=== PATIENT | male | born 1950 ===

== ENCOUNTER 2024-09-09 08:54 | Outpatient (AMB) | payer OTHER, SELFPAY ==
--- NOTE | 2024-09-09 09:00 | A.SPINEOV_ITS ---
Vital Signs 09/09/24 09:14 Height 5 ft 4 in Weight 150 lb BMI 25.7 Intake Visit Reasons: LBP Intake Note: Mr. Jiang is here today c/o numbness and weakness of legs hes also here for a second opinion. 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 He is a 74-year-old gentleman who has had a chronic issue with his low back on and off for years with left-sided back pain and sciatic pain, apparently has known about a spondylolisthesis in his lumbar spine and saw Dr. Richey at [facility]. He was told about surgery, sounds like lumbar fusion was discussed but 1 of the main symptoms the patient was hoping to go away is a numbness in his foot and he was told that that was unlikely to get better after surgery. He also experiences a sense of fatigue or discomfort like his toes are cramping as well on the bottom. For the most part it did not sound all that enticing, so the patient has elected to attempt conservative treatments with spinal decompression with a chiropractor. He just started that process and feels as though it is slightly improving his situation. He has not done any dedicated physical therapy, pain management injections etc.. He takes no medications but does take various herbal remedies. He came today to see if there is anything we could do for him surgically. He does report issues with bowel incontinence going back many decades, more recently has felt as though there maybe some altered sensation in the perineum or the saddle area as well as possibly in his penis. No problems with urination or erections. PMH: He denies any medical history, he did have a recent humerus fracture, he has never had surgery for it it was just put in a sling and he recovered from that without incident. Social hx: He uses smoke marijuana and drink alcohol fairly heavily, but quit that many years ago, he does not smoke cigarettes Medications: Takes no medication Allergies: Denies Physical exam: Awake alert oriented no acute distress he is able to stand on his own, walk down the hallway, steady gait in normal position, some unsteadiness with tandem gait walking. Motor examination reveals full strength of bilateral lower extremities, patellar reflexes intact, Achilles reflexes absent. Strength in his hands is excellent, his proximal right arm was unable to be adequate tested because of healing and some atrophy of his right arm from the humerus fracture but for the most part seems to be full strength, no Thompson's sign or signs of hyperreflexia in the upper extremities Imaging review: No imaging to review but he did show me a x-ray picture of what looks like a grade 2 spondylolisthesis of L4-5 and possibly L3-4 grade 1 Impression: 74-year-old male here to be evaluated for what sounds like left- sided low back pain and numbness of his left foot as well as some feelings of cramping in his left foot when he walks. He saw Dr. Richey at [facility] who was considering surgery on him but could not promise the patient that the numbness in his foot would go away after surgery so they both agreed it was best he did not pursue the surgery. He did not have his MRI with him today, but did show me an x-ray picture of what looks like a grade 1-2 spondylolisthesis at L4-5, and a grade 1 spondylolisthesis at L3-4. I told him I would be happy to review his MRI with Dr. Valenzuela. He also apparently had flexion-extension x-rays done at [facility] and he will drop that disc off. Once I have a chance to review everything I will get back to the gentleman. Thank you for allowing us to care for your patient. The total time spent with this visit with this patient was 45 minutes reviewing history, physical exam, discussing imaging review, and implementation of treatment plan or further diagnostic testing Ez Valenzuela MD,PhD [facility] Coding Level of Care Code New Pt Level 4 (46016) Diagnoses Spondylolisthesis, lumbar region M43.16
[2024-09-09 09:14] VITALS: BMI 25.7
--- OUTSIDE RECORDS SUMMARY | 2024-09-09 09:30 | XMS_ITS | Clinical Summary ---
Author Organization [facility] Address [address] [place] [address] Care Team Providers Care Warehouse Order Puller Name Role Phone Unavailable Primary Care Provider Unavailabl e Source Comments PLEASE NOTE, if this patient is a minor, it may be UNLAWFUL to discuss sensitive information that is contained in these records (such as FAMILY PLANNING, MENTAL HEALTH or SUBSTANCE ABUSE) with the minor patient's parent or other person without the patient's specific authorization.[facility] Medications No known medications Active Problems Problem Noted Date Diagnosed Date H/O dental abscess 03/10/2017 Eye pain, left 03/10/2017 Social History Tobacco Use Types Packs/Day Years Used Date Smoking Tobacco: Never Smokeless Tobacco: Never Tobacco Cessation:Counseling Given: Yes Social Connections Answer Date Recorded Social Connections and Isolation 0 01/30/2019 Financial Resource Strain Answer Date R ecorded Financial Resource Strain 0 2018 Stress Answer Date Recorded Stress 0 01/30/2019 Physical Activity Answer Date Recorded Physical Activity 0 01/30/2019 Food Insecurity Answer Date Recorded Food 0 01/30/2019 Transportation Needs Answer Date Record ed Transportation 0 01/30/2019 Housing Stability Answer Date Recorded Housing 0 01/30/2019 Safety and Environment Answer Date Doc rded Safety 0 01/30/2019 Utilities Answer Date Recorded Utilities 0 01/30/2019 Employment Answer Date Recorded Employment 0 01/30/2019 Sex and Gender Information Value Date Recorded Sex Assigned at Not on file Legal Sex Male 12:44 PM PDT Gender Identity Not on file Sexual Orientation Not on file Last Filed Vital Signs Vital Sign Reading Time Taken Comments Blood Pressure 127/80 03/10/2017 4:30 PM EDT Pulse 78 03/10/2017 4:30 PM EDT Temperature 37.1 ??C (98.7 ??F) 03/10/2017 4:30 PM ED T Respiratory Rate 20 03/10/2017 4:30 PM EDT Oxygen Saturation 98% 03/10/2017 4:30 PM EDT Inhaled Oxygen Concentration - - Weight 80.3 kg (177 lb) 03/10/2017 4:30 PM EDT Height - - Body Mass Index - - Plan of Treatment Not on file Insurance [facility] (MEDICAID)
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
== END 2024-09-09 09:46 | disposition home or self-care (01) ==
LOC: HO.HNS 08:55
PROVIDERS: PCP Family Medicine; Visit Provider Physician Assistant
DX: M43.16 Spondylolisthesis, lumbar region (principal)
CPT/HCPCS: 99204

== ENCOUNTER 2024-09-09 08:54 | Outpatient (REF) | payer OTHER, SELFPAY ==
--- OUTSIDE RECORDS SUMMARY | 2024-09-09 13:01 | XMS_ITS | Clinical Summary ---
Author Organization [facility] Address [address] [place] [address] Care Team Providers Care Top Collar Baster Name Role Phone Unavailable Primary Care Provider [...] Plan of Treatment Not on file Insurance [facility] (MEDICAID)
== END 2024-09-09 08:55 | disposition home or self-care (01) ==
LOC: CF 08:54
PROVIDERS: PCP Family Medicine; Visit Provider Physician Assistant
DX: M43.16 Spondylolisthesis, lumbar region (principal)
CPT/HCPCS: 99202

== ENCOUNTER 2024-09-23 13:28 | Outpatient (REF) | payer OTHER, SELFPAY ==
--- NOTE | ~2024-09-23 | XR_ITS ---
EXAMINATION: X-ray lumbar spine 4 views. CLINICAL INFORMATION: Spondylolisthesis, lumbar region. TECHNIQUE: AP and lateral views and lateral views during flexion and extension position. COMPARISON: None FINDINGS: Multilevel marginal osteophyte formation and endplate sclerosis decreased intervertebral disc height from the lower thoracic to the lumbar spine. S-shaped curvature of the lumbar spine with a levoconvex morphology. Grade 1 anterolisthesis L4-5 and L5-S1 which persists during flexion and extension position. Vascular calcifications, aorta. XR/XR lumbar spine 4V min IMPRESSION: Multilevel thoracolumbar spondylosis with grade 1 anterolisthesis L4-5 and L5-S1 and no gross instability. Atherosclerosis disease, aorta. Electronically signed by: Luis Pa MD 09/23/2024 02:46 PM EDT
--- OUTSIDE RECORDS SUMMARY | 2024-09-23 14:45 | XMS_ITS | Data Portability ---
Author Organization [facility], , [facility] Address [address] [place] [address] Care Team Providers Care Rn Hospice Name Role Phone KATHLEEN COHEN Primary Care [...] naproxen 500 mg tablet 2013 014 [email or web address] [facility] [address] ([facility]), [address] [place], [place], [id number], 4 12:04:55 Patient Targets Encounter Date Encounter Id Patient Goals Patient Target Last Modified By Organization Details Last Modified Time 02/10/2014 [id number] long term goal of L-spine AROM (normal) motion: flexion: active motion (___ deg.) Not available Not available Not available long term goal of L-spine AROM (normal) motion: extension: active motion (___ deg.) Not available Not available Not available prison goal of Average symptom intensity average 06/17 Not available Not available Not available prison goal of Standing performs without symptoms Not available Not available Not available prison goal of Walking long distances performs without symptoms Not available Not available Not available prison goal of Running performs without symptoms Not available Not available Not available Patient InstructionsNo instructions recorded. Reason for Referral None Reported. Problems Name Problem SNOMED Code Status Onset Date Resolution Date Notes Provider Name and Address Organization Details Recorded Time Low back pain 997274613 Active Kathleen Cohen MD [address] [place] [address], [phone] , [facility] 03/16/2014 12:04:55 Problem Notes None recorded. Procedures Surgical History Date Name Laterality Status Provider Name and Address Organization Details Recorded Time 4 48372: Therapeutic Exercise completed Rosalinda Espinoza, PT [address] [place], [address], [facility] 02/24/2014 14:45:21 4 87939: PT Evaluation completed Rosalinda Espinoza, PT [address] [place], [address], [facility] 02/13/2014 09:48:01 Imaging Results None recorded. Procedure [...] Updated DateTime 02/10/2014 164.465 cm 28.8 kg/m2 68790.88 764 g 132 mm[Hg] 76 mm[Hg] [facility] 4 11:48:38 Date Recorded Body weight Body mass index (BMI) Body height Systolic blood pressure Diastolic blood pressure Provider Name and Address Organization Details Last Updated DateTime 03/16/2014 41598.88 764 g 28.8 kg/m2 164.465 cm 132 mm[Hg] 78 mm[Hg] [facility] 4 11:33:04 Date Recorded Body weight Body mass index (BMI) Body height Systolic blood pressure Diastolic blood pressure Provider Name and Address Organization Details Last Updated DateTime 03/20/2014 87219.64 5675 g 29.8 kg/m2 164.465 cm 104 mm[Hg] 66 mm[Hg] Lanny Thomas LPN [facility] 4 15:13:42 Social History Question Answer Notes LastModified by Organizat ion Details LastModified Time Tobacco Smoking Status Former Smoker anne Lanny Thomas LPN [facility] 03/20/2014 15:13:42 What Is Your Level [...] unknown Medical History Condition Response NEUROLOGIC N EYE Y RENAL / GENITOURINARY N INFECTIOUS DISEASE N ENT N GASTROINTESTINAL Y METABOLIC N Asthma Y Chronic Back Pain Y SKIN Y CARDIOVASCULAR N MUSCULOSKELETAL Y ENDOCRINE N RHEUMATOLOGIC N PSYCHIATRIC Y CANCER N Past Encounters Encounter ID Performer Location Encounter Start Date Encounter Closed Date Diagnosis/Indication Diagnosis SNOMED-CT Code Diagnosis ICD10 Code Diagnosis Note [id number] Isi Graff , [facility], [address] [place] [address] 02/08/2014 12:14:24 02/08/2014 12:56:01 Toothache [id number] Follow up with dental. Will order labs today in case they are needed. Will also draw screening labs and patient will f/u for PHA. [id number] Kathleen Cohen MD , [facility], [address] [place] [address] 02/10/2014 11:25:38 02/10/2014 12:14:01 Synovial cyst of popliteal space 98916107 [id number] Rosalinda Espinoza , PT Physical Therapy, [facility] [address] [place] [address] 02/10/2014 12:22:12 02/14/2014 07:15:47 Low back pain 431179566 [id number] Rosalinda Espinoza , PT Physical Therapy, [facility] [address] [place] [address] 02/24/2014 14:37:23 02/27/2014 07:16:30 Low back pain 672263962 [id number] Kathleen Cohen MD , [facility], [address] [place] [address] 03/16/2014 11:11:38 03/16/2014 12:02:47 Adult health examination [id number] Patient declines: flu shot, Tdap, colonoscop y, accepts bloodwork but will return some other day for this. Continue healthy lifestyle. PMH/FH/charito gical hx and part of social history done today. Limited by time. Patient will f/u with me as well after joint injection for remainder of social history and general exam. Synovial c yst of popliteal space 54181815 Patient will schedule here for draining and steroid injection or at [facility]. Low back pain 887793753 T/b/d at f/u. [id number] Trever Salinas MD , [facility], [address] [place] [address] 03/20/2014 15:03:53 03/20/2014 15:32:22 Synovial cyst of popliteal space 88123029 I don't recommend aspiration as cyst will [...] Member ID Guarantor Name 02/10/2014 1 [facility]MEDICA[facility] [id number] Henrik F F Pepiciello [id number] 1 Henrik Pepiciello 02/10/2014 1 [facility] (MEDICAID O) [id number] Henrik F F Pepiciello [id number] 1 Henrik Pepiciello 02/24/2014 1 [facility] (MEDICAID HMO) [id number] Henrik F F Pepiciello [id number] 1 Henrik Pepiciello 03/16/2014 1 [facility] (MEDICAID HMO) [id number] Henrik F F Pepiciello [id number] 1 Henrik Pepiciello 03/20/2014 1 [facility] (MEDICAID HMO) [id number] Henrik F F Pepiciello [id number] 1 Henrik Jiang Notes Date Note Type [...] No other complaint today. Kathleen Cohen MD [address] [place] [address], [phone], [facility] 02/13/2014 09:29:50 03/16/2014 text/html Patient was last seen for Forrest's cyst. Referred to [facility] where he declined draining the cyst but now he wants it drained. Otherwise well. Patient has not come for a new patient visit with me but did have a new patient visit with Sobia Telles, wants to follow up with me. PMH/FH/SH not taken at other new patient visit but patient really wants to discuss these things. Kathleen Cohen MD [address] [place] [address], [phone], [facility] 03/16/2014 12:05:03 03/20/2014 text/html pt here for possible drainage of forrest's cyst on left knee . Has lump back of left knee- . doesn't really bother him. Told aspiration with cortisone may help. On x-ray there is slight djd. There is no posterio pain in knee . There is some infrapatella tenderon pain Trever Salinas MD [address] [place] [address], [phone], [facility] 03/20/2014 17:16:02
--- OUTSIDE RECORDS SUMMARY | 2024-09-23 14:45 | XMS_ITS | Clinical Summary ---
Author Organization [facility] Address [address] [place] [address] Care Team Providers Care Parish Worker Name Role Phone Unavailable Primary Care Provider [...] Plan of Treatment Not on file Insurance [facility] (MEDICAID)
== END 2024-09-23 13:29 | disposition home or self-care (01) ==
LOC: HO.HOSX 13:28
PROVIDERS: PCP Family Medicine; Visit Provider Physician Assistant
DX: M43.16 Spondylolisthesis, lumbar region (principal)
CPT/HCPCS: 72110; 99212

== ENCOUNTER 2024-09-23 13:28 | Outpatient (AMB) | payer OTHER, SELFPAY ==
--- OUTSIDE RECORDS SUMMARY | 2024-09-23 13:54 | XMS_ITS | Clinical Summary ---
Author Organization [facility] Address [address] [place] [address] Care Team Providers Care Formal Waiter/Waitress Name Role Phone Unavailable Primary Care Provider [...] Plan of Treatment Not on file Insurance [facility] (MEDICAID)
--- NOTE | 2024-09-23 13:55 | A.SPINEOV_ITS ---
Intake Visit Reasons: follow up with in office Intake Note: Mr. Jiang is here today to F/u with Dr. Valenzuela in office. Community Service Organization Director Required: No Allergies Anesthesia Adverse Reaction (Severe, Uncoded 09/09/24 09:15) Swelling Assessment & Plan Assessment & Plan (1) Spondylolisthesis, lumbar region: Code(s): M43.16 - Spondylolisthesis, lumbar region Category: Medical Plan Mr Jiang came back in the office today to review his MRI done at [facility] and to meet Dr. Valenzuela. This is a gentleman who we previously saw for complaints of progressive loss of strength in his lower extremities with walking, numbness of his left foot as well as progression of some fecal incontinence and perineal numbness as well as numbness in the tip of his penis. His MRI was reviewed, and it shows spondylolisthesis at L3-4 and L4-5 with severe central canal stenosis. Dr. Valenzuela recommended anterior lumbar interbody fusion L3-4, L4-5. We can not do a traditional oblique lumbar interbody fusion which would ultimately be the procedure of choice because 1 of the iliac arteries is running right near the left L4-5 anterior disc space. Therefore we will need access approach from Dr. De León for an ALIF. His BMI is 25 so this should be reasonable. I did send Dr. De León an image of his MRI and he thought it would be fine for that approach. I sat down with the patient, introduced him to Dr. Valenzuela and we reviewed the procedure at length. He understands that because he is developing some degree of cauda equina syndrome from this that we should not delay too long and doing the surgery, and that the numbness he is getting of his genitals in the fecal incontinence could be permanent, however there is some room for improvement possibly. We do believe that the feeling of fatigue in his legs with walking should get significantly better. He is going to let us know how he would like to proceed with surgery, but in the interim we will get a preop with visit with Dr De León completed. I will also get an updated set of flexion-extension x-rays as well. Pt was given risk and benefits of surgery including but not limited to infection, hematoma , nerve injury,durotomy, weakness,bowel/bladder injury, persistent pain, persistent numbness of the foot and genitals, persistent fecal incontinence as well as the option to continue with conservative treatment and patient wishes to proceed with surgery. Pt is aware they should stop their motrin, aspirin 7 days prior to surgery. All questions were answered to the best of our ability. If there is anything about this patients medical history that we have overlooked or concerns you have about us proceeding with surgery we would appreciate any input you can offer. Total amount of time spent in this visit was 20 minutes in discussion of symptoms, lumbar imaging results and subsequent plan of care Ez Valenzuela MD,PhD [facility] Orders: Orders XR lumbar spine 4V min Today M43.16 - Spondylolisthesis, lumbar region Coding Level of Care Code Est Pt Level 3 (91743) Diagnoses Spondylolisthesis, lumbar region M43.16
== END 2024-09-23 14:27 | disposition home or self-care (01) ==
LOC: HO.HNS 13:29
PROVIDERS: PCP Family Medicine; Visit Provider Physician Assistant
DX: M43.16 Spondylolisthesis, lumbar region (principal)
CPT/HCPCS: 99213

== ENCOUNTER → 2024-09-23 14:30 | Outpatient (BNV) | payer OTHER, SELFPAY | PROVIDERS: PCP Family Medicine; Visit Provider Radiology Diagnostic Radiology | DX: M47.815 Spondylosis without myelopathy or radiculopathy, thoracolumbar region (principal) | CPT/HCPCS: 72110 ==

== ENCOUNTER 2024-11-09 09:11 | Outpatient (AMB) | payer OTHER, SELFPAY ==
--- NOTE | 2024-11-09 09:37 | A.SPINEOV_ITS ---
Intake Visit Reasons: discuss sx Intake Note: Mr. Jiang is here today to discuss surgical options. 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 The symptoms are caused by an L3-4 and L4-5 spondylol isthesis with associated severe spinal stenosis at these levels. We stressed the urgency to the patient in the past to undergo a surgery to stabilize and hopefully reverse his progressive symptoms. Today comes in to discuss again the surgical options and the rationale for my choice of an anterior lumbar interbody fusion of these levels. I prefer an anterior lumbar interbody fusion over a transforaminal lumbar interbody fusion is patient as the ALIF is an excellent choice to restore the anatomical alignment and to indirectly decompress the nervous structures. In other words, destruction of the posterior elements is prevented. Secondly, the anterior lumbar interbody fusion has a high rate of fusion due to the cage size. He is 74 and therefore subside this is also something to consider which should be less as the cage sits on the apophyseal ring instead of in the center and therefore the risk of suicide and should be less. I stressed again that he should not wait that long to decide about surgery as he has of significant risk for permanent nerve injury or further progression of his partial cauda equina syndrome. He fully understood my explanation. He is going to let me know by Thursday if he wants to proceed. I spent 40 minutes in his consult answering questions. Alex Valenzuela MD, PhD Spine Fellowship Trained Neurosurgeon Director, [facility] Coding Level of Care Code Est Pt Level 5 (58641) Diagnoses Spondylolisthesis, lumbar region M43.16
--- OUTSIDE RECORDS SUMMARY | 2024-11-09 09:38 | XMS_ITS | Data Portability ---
Author Organization [facility], [facility] Address [address] [place] [address] Care Team Providers Care Motion Picture Critic Name Role Phone KATHLEEN COHEN Primary Care [...] back pain for ADLs and exercise Clinical Goals:1. Demonstrate pain free trunk range of motion. 2. Demonstrates sufficient trunk muscular stability to meet functional demands. Skilled physical therapy is needed to safely and progressively address impairments and functional limitations as outlined above. Treatment Plan: Patient to return 1-2 times per week for 6-8 weeks. We expect significant change in pain, impairment and function in this time frame. Treatment to Include: therapeutic exercise and manual therapy [email or web address] Not available 02/13/2014 09:49:48 02/24/2014 02/24/2014 Discussed ant-inflammatory treatment for the Forrest's cyst in his knee. Advanced trunk stabilization exercise as above [email or web address] Not available 02/24/2014 16:12:54 Plan of Treatment Reminders Order Date Submit Date Provider Last Modified By Organization Details Last Modified Time Details Appointments None recorded. Lab None recorded. Referral None recorded. Procedures None recorded. Surgeries None recorded. Imaging None recorded. Medication Orders naproxen 500 mg tablet 2013 014 [email or web address] [facility] [address] ([facility]), [address] [place], [place], [phone], 4 12:04:55 Patient Targets Encounter Date Encounter Id Patient Goals Patient Target Last Modified By Organization Details Last Modified Time 02/10/2014 [id number] intermediate frame tender goal of L-spine AROM (normal) motion: flexion: active motion (___ deg.) Not available Not available Not available long-term goal of L-spine AROM (normal) motion: extension: active motion (___ deg.) Not available Not available Not available long-term goal of Average symptom intensity average 06/17 Not available Not available Not available intermediate frame tender goal of Standing performs without symptoms Not available Not available Not available intermediate frame tender goal of Walking long distances performs without symptoms Not available Not available Not available intermediate frame tender goal of Running performs without symptoms Not available Not available Not available Patient InstructionsNo instructions recorded. Reason for Referral None Reported. Problems Name Problem SNOMED Code Status Onset Date Resolution Date Notes Provider Name and Address Organization Details Recorded Time Low back pain 663293471 Active Kathleen Cohen MD [address] [place] [address], [phone] , [facility] 03/16/2014 12:04:55 Problem Notes None recorded. Procedures Surgical History Date Name Laterality Status Provider Name and Address Organization Details Recorded Time 4 81182: Therapeutic Exercise completed Rosalinda Espinoza, PT [address] [place], [address], [facility] 02/24/2014 14:45:21 4 80717: PT Evaluation completed Rosalinda Espinoza, PT [address] [place], [address], [facility] 02/13/2014 09:48:01 Imaging Results None recorded. Procedure [...] Updated DateTime 02/10/2014 164.465 cm 28.8 kg/m2 23460.88 764 g 132 mm[Hg] 76 mm[Hg] [facility] 4 11:48:38 Date Recorded Body weight Body mass index (BMI) Body height Systolic blood pressure Diastolic blood pressure Provider Name and Address Organization Details Last Updated DateTime 03/16/2014 74345.88 764 g 28.8 kg/m2 164.465 cm 132 mm[Hg] 78 mm[Hg] Allyssa [facility] 4 11:33:04 Date Recorded Body weight Body mass index (BMI) Body height Systolic blood pressure Diastolic blood pressure Provider Name and Address Organization Details Last Updated DateTime 03/20/2014 64861.64 5675 g 29.8 kg/m2 164.465 cm 104 mm[Hg] 66 mm[Hg] Lanny Thomas LPN [facility] 4 15:13:42 Social History Question Answer Notes LastModified by Organizat ion Details LastModified Time Tobacco Smoking Status Former Smoker anne Lanny Thomas LPN [facility] 03/20/2014 15:13:42 How Much Tobacco Do You Chew? None [email or web address] Information not available 03/20/2014 Live Alone Or With Others? Alone Information not available 02/08/2014 Patient Has Health Care Proxy Signed And In Chart No Will Think About Information not available 02/08/2014 Marital Status Single Information not available 02/08/2014 How Many Children Do You Have? 0 Information not available 02/08/2014 At What Age Did You Start Smoking Tobacco? 27 Information not available 03/20/2014 Sex: Unknown Functional Status Question Answer Note LastModified by Organizat ion Details LastModified Time What is your level of alcohol consumption? None Information not available 03/20/2014 What is your occupation? semi retired Information not available 02/08/2014 Mental Status None recorded. Family History Relationship Description Onset Age of this Age Resolved Age Notes LastModified by Organization Details LastModified Time Maternal Grandmother Malignant neoplasm of ovary [email or web address] Not available 2013 11:55:43 [...] SNOMED-CT Code Diagnosis ICD10 Code Diagnosis Note [id number] Kathleen Cohen MD , [facility], [address] [place] [address] 02/08/2014 12:14:24 02/08/2014 12:56:01 Toothache [id number] Follow up with dental. Will order labs today in case they are needed. Will also draw screening labs and patient will f/u for PHA. [id number] Kathleen Cohen MD , [facility], [address] [place] [address] 02/10/2014 11:25:38 02/10/2014 12:14:01 Synovial cyst of popliteal space 45944807 [id number] Rosalinda Espinoza , PT Physical Therapy, [facility] [address] [place] [address] 02/10/2014 12:22:12 02/14/2014 07:15:47 Low back pain 327622502 [id number] Rosalinda Espinoza , PT Physical Therapy, [facility] [address] [place] [address] 02/24/2014 14:37:23 02/27/2014 07:16:30 Low back pain 873871993 [id number] Kathleen Cohen MD , [facility], [address] [place] [address] 03/16/2014 11:11:38 03/16/2014 12:02:47 Adult health examination 277525308 Patient declines: flu shot, Tdap, colonoscop y, accepts bloodwork but will return some other day for this. Continue healthy lifestyle. PMH/FH/charito gical hx and part of social history done today. Limited by time. Patient will f/u with me as well after joint injection for remainder of social history and general exam. Synovial c yst of popliteal space 79430612 Patient will schedule here for draining and steroid injection or at [facility]. Low back pain 354157025 T/b/d at f/u. [id number] Trever Salinas MD , [facility], [address] [place] [address] 03/20/2014 15:03:53 03/20/2014 15:32:22 Synovial cyst of popliteal space 59495410 I don't recommend aspiration as cyst will [...] Alvarez Member ID Guarantor Name 02/10/2014 1 [facility] (MEDICAID HMO) [id number] Henrik F F Pepiciello [id number] 1 Henrik Pepiciello 02/10/2014 1 [facility] [id number] Henrik F F Pepiciello [id number] 1 Henrik Pepiciello 02/24/2014 1 [facility] [id number] Henrik F F Pepiciello [id number] 1 Henrik Pepiciello 03/16/2014 1 [facility] [id number] Henrik F F Pepiciello [id number] 1 Henrik Pepiciello 03/20/2014 1 [facility] [id number] Henrik F F Pepiciello [id number] 1 Henrik Jiang Notes Date Note Type [...] No other complaint today. Kathleen Cohen MD [address] [place] [address], [phone], [facility] 02/13/2014 09:29:50 03/16/2014 text/html Patient was last seen for Forrest's cyst. Referred to [facility] where he declined draining the cyst but now he wants it drained. Otherwise well. Patient has not come for a new patient visit with me but did have a new patient visit with Sobia Telles, wants to follow up with me. PMH/FH/SH not taken at other new patient visit but patient really wants to discuss these things. Kathleen Cohen MD [address] [place] [address], [phone], [facility] 03/16/2014 12:05:03 03/20/2014 text/html pt here for possible drainage of forrest's cyst on left knee . Has lump back of left knee- . doesn't really bother him. Told aspiration with cortisone may help. On x-ray there is slight djd. There is no posterio pain in knee . There is some infrapatella tenderon pain Trever Salinas MD [address] [place] [address], [phone], [facility] 03/20/2014 17:16:02
== END 2024-11-09 10:24 | disposition home or self-care (01) ==
LOC: HO.HNS 09:15
PROVIDERS: PCP Family Medicine; Visit Provider Neurological Surgery
DX: M43.16 Spondylolisthesis, lumbar region (principal)
CPT/HCPCS: 99215

== ENCOUNTER → 2024-11-09 09:11 | Outpatient (BNVA) | payer OTHER, SELFPAY | PROVIDERS: PCP Family Medicine; Visit Provider Neurological Surgery | DX: M43.16 Spondylolisthesis, lumbar region (principal) | CPT/HCPCS: 99212 ==

== ENCOUNTER 2024-11-28 14:55 | Outpatient (AMB) | payer OTHER, SELFPAY ==
--- NOTE | 2024-11-28 14:59 | HO.SPINEOV ---
Intake Visit Reasons: questions before sx Intake Note: Mr. 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 He met with Dr. Chávez at [facility], and it sounds like they want to pursue a posterior approach either a PLIF or TLIF. I reiterated Dr. Valenzuela typical approach and reason for choosing the anterior approach as outlined in his last note. It gives the opportunity put in larger cages, avoids the nervous structures and avoids having to do any direct decompression or destruction of the quinault spinal elements. The patient would like us to book surgery with Dr. Valenzuela. If he changes his mind he will call and let us know. They have already met with Dr. De León. All pertinent risks and benefits were discussed. We also discussed the fact that a lot of his symptoms are cauda equina in nature and that these nerves can be very fragile, understanding he has had the symptoms for many years, there will likely be some form of numbness that remains after surgery but we are very hopeful that things will improve. I told him it could take up to a year to see the final end result of surgery. Total amount of time spent in this visit was 20 minutes in discussion of symptoms, surgical discussion and subsequent plan of care Ez Valenzuela MD,PhD [facility] Coding Level of Care Code Est Pt Level 3 (80055) Diagnoses Spondylolisthesis, lumbar region M43.16
--- OUTSIDE RECORDS SUMMARY | 2024-11-28 16:27 | XMS_ITS | Data Portability ---
Author Organization [facility], [facility] Address [address] [place] [address] Care Team Providers Care Monomer Recovery Operator Name Role Phone KATHLEEN COHEN Primary Care [...] knee. Advanced trunk stabilization exercise as above josullivan Not available 02/24/2014 16:12:54 Plan of Treatment Reminders Order Date Submit Date Provider Last Modified By Organization Details Last Modified Time Details Appointments None recorded. Lab None recorded. Referral None recorded. Procedures None recorded. Surgeries None recorded. Imaging None recorded. Medication Orders naproxen 500 mg tablet 2013 014 [email or web address] [facility] [id number] ([facility] 827), [address] [place] [address], [id number], 4 12:04:55 Patient Targets Encounter Date Encounter Id Patient Goals Patient Target Last Modified By Organization Details Last Modified Time 02/10/2014 [id number] telegraph inspector goal of L-spine AROM (normal) motion: flexion: active motion (___ deg.) Not available Not available Not available penitentiary goal of L-spine AROM (normal) motion: extension: active motion (___ deg.) Not available Not available Not available telegraph inspector goal of Average symptom intensity average 06/17 Not available Not available Not available penitentiary goal of Standing performs without symptoms Not available Not available Not available telegraph inspector goal of Walking long distances performs without symptoms Not available Not available Not available penitentiary goal of Running performs without symptoms Not available Not available Not available Patient InstructionsNo instructions recorded. Reason for Referral None Reported. Problems Name Problem SNOMED Code Status Onset Date Resolution Date Notes Provider Name and Address Organization Details Recorded Time Low back pain 384021954 Active Kathleen Cohen MD [address] [place] [address], [phone] , [facility] 03/16/2014 12:04:55 Problem Notes None recorded. Procedures Surgical History Date Name Laterality Status Provider Name and Address Organization Details Recorded Time 4 37263: Therapeutic Exercise completed Rosalinda Espinoza, PT [address] [place], [place], [address] [place] [address], [facility] 02/24/2014 14:45:21 4 [address]78: PT Evaluation completed Rosalinda Espinoza, PT [address] [place] [address], [phone], [facility] 02/13/2014 09:48:01 Imaging Results None recorded. Procedure [...] Updated DateTime 02/10/2014 164.465 cm 28.8 kg/m2 44669.88 764 g 132 mm[Hg] 76 mm[Hg] Allyssa Weisbro[facility] 4 11:48:38 Date Recorded Body weight Body mass index (BMI) Body height Systolic blood pressure Diastolic blood pressure Provider Name and Address Organization Details Last Updated DateTime 03/16/2014 63025.88 764 g 28.8 kg/m2 164.465 cm 132 mm[Hg] 78 mm[Hg] Allyssa Weisbrod [facility] 4 11:33:04 Date Recorded Body weight Body mass index (BMI) Body height Systolic blood pressure Diastolic blood pressure Provider Name and Address Organization Details Last Updated DateTime 03/20/2014 94133.64 5675 g 29.8 kg/m2 164.465 cm 104 mm[Hg] 66 mm[Hg] Lanny Thomas LPN [facility] 4 15:13:42 Social History Question Answer Notes LastModified by Organizat ion Details LastModified Time Tobacco Smoking Status Former Smoker anne Lanny Thomas LPN [facility] 03/20/2014 15:13:42 How Much Tobacco Do You Chew? None Information not available 03/20/2014 Live Alone Or [...] is your level of alcohol consumption? None [email or web address] Information not available 03/20/2014 What is your [...] N EYE Y RENAL / GENITOURINARY N ENT N INFECTIOUS DISEASE N GASTROINTESTINAL Y Asthma Y METABOLIC N Chronic Back Pain Y SKIN Y CARDIOVASCULAR N MUSCULOSKELETAL Y ENDOCRINE N RHEUMATOLOGIC N PSYCHIATRIC Y CANCER N Past Encounters Encounter ID Performer Location Encounter Start Date Encounter Closed Date Diagnosis/Indication Diagnosis SNOMED-CT Code Diagnosis ICD10 Code Diagnosis Note [id number] Kathleen Cohen MD , [facility], [address] [place] [address] 02/08/2014 12:14:24 02/08/2014 12:56:01 Toothache [id number] Follow up with dental. Will order labs today in case they are needed. Will also draw screening labs and patient will f/u for PHA. [id number] Kathleen Cohen MD , [facility], [address] [place] [address] 02/10/2014 11:25:38 02/10/2014 12:14:01 Synovial cyst of popliteal space [id number] Rosalinda Espinoza , PT Physical Therapy, [facility] [address] [place] [address] 02/10/2014 12:22:12 02/14/2014 07:15:47 Low back pain 079754894 [id number] Rosalinda Espinoza , PT Physical Therapy, [address] [address] 02/24/2014 14:37:23 02/27/2014 07:16:30 Low back pain [id number] Kathleen Cohen MD , [facility], [address] [place] [address] 03/16/2014 11:11:38 03/16/2014 12:02:47 Adult health examination 292730190 Patient declines: flu shot, Tdap, colonoscop y, accepts bloodwork but will return some other day for this. Continue healthy lifestyle. PMH/FH/charito gical hx and part of social history done today. Limited by time. Patient will f/u with me as well after joint injection for remainder of social history and general exam. Synovial c yst of popliteal space [id number] Patient will schedule here for draining and steroid injection or at [facility]. Low back pain 305752452 T/b/d at f/u. [id number] Trever Salinas MD , [facility], [address] [place] [address] 03/20/2014 15:03:53 03/20/2014 15:32:22 Synovial cyst of popliteal space 35444919 I don't recommend aspiration as cyst will come back. if it gets much bigger and bothers him, consider orthorefer ral for excision. Health Concerns Section Related Observation LastModified by Organization Detai ls LastModified Time None Recorded Concern Status LastModified by Organization Details LastModified Time None Recorded Advance Directives Directive None Recorded Payers Insurance Date Sequence Insurance Name Policy Number Policy Alvarez Covered Member ID Alvarez Member ID Guarantor Name 02/08/2015 1 [facility] (MEDICAID HMO) [id number] Henrik F F Deidre [id number] Henrik Jiang 02/08/2015 1 [facility] [id number] Henrik Leandro Deidre [id number] eHnrik Jiagn 02/08/2015 1 MEDICAID-[place]: [facility] Henrik Leandro Deidre [id number] Henrik Jiang Notes Date Note Type Note [...] No other complaint today. Kathleen Cohen MD [address] [place] [address], [phone], [facility] 02/13/2014 09:29:50 03/16/2014 text/html Patient was last seen for Forrest's cyst. Referred to [facility] where he declined draining the cyst but now he wants it drained. Otherwise well. Patient has not come for a new patient visit with me but did have a new patient visit with Sobia Telles, wants to follow up with me. PMH/FH/SH not taken at other new patient visit but patient really wants to discuss these things. Kathleen Cohen MD [address] [place] [address], [phone], [facility] 03/16/2014 12:05:03 03/20/2014 text/html pt here for possible drainage of forrest's cyst on left knee . Has lump back of left knee- . doesn't really bother him. Told aspiration with cortisone may help. On x-ray there is slight djd. There is no posterio pain in knee . There is some infrapatella tenderon pain Trever Salinas MD [address] [place] [address], [phone], [facility] 03/20/2014 17:16:02
== END 2024-11-28 15:57 | disposition home or self-care (01) ==
LOC: HO.HNS 14:56
PROVIDERS: PCP Family Medicine; Visit Provider Physician Assistant
DX: M43.16 Spondylolisthesis, lumbar region (principal)
CPT/HCPCS: 99213

== ENCOUNTER → 2024-11-28 14:55 | Outpatient (BNVA) | payer OTHER, SELFPAY | PROVIDERS: PCP Family Medicine; Visit Provider Physician Assistant | DX: M43.16 Spondylolisthesis, lumbar region (principal) | CPT/HCPCS: 99212 ==

== ENCOUNTER → 2025-01-17 14:39 | Outpatient (BNV) | payer OTHER, SELFPAY | PROVIDERS: Admitting Provider Neurological Surgery; Visit Provider Internal Medicine Cardiovascular Disease | DX: I49.9 Cardiac arrhythmia, unspecified (principal) | CPT/HCPCS: 93010 ==

== ENCOUNTER 2025-01-31 06:28 | Outpatient (BNV) | payer OTHER, SELFPAY | END 2025-01-31 08:50 | PROVIDERS: Admitting Provider Neurological Surgery; Visit Provider Radiology Diagnostic Radiology | DX: Z13.818 Encounter for screening for other digestive system disorders (principal); Z98.1 Arthrodesis status | CPT/HCPCS: 74018 ==

== ENCOUNTER 2025-01-31 06:28 | Inpatient (IN) | payer OTHER, SELFPAY ==
--- NOTE | 2025-01-17 | ECG_ITS ---
Test Reason : PRE OP Blood Pressure : */* mmHG Vent. Rate : 72 BPM Atrial Rate : 72 BPM P-R Int : 132 ms QRS Dur : 80 ms QT Int : 342 ms P-R-T Axes : 15 -27 -4 degrees QTcB Int : 374 ms Sinus rhythm with marked sinus arrhythmia Nonspecific ST abnormality Abnormal ECG No previous ECGs available Referred By: Dominique Layton Electronically Signed By: Oscar Collins
[2025-01-17 13:53] VITALS: BP 137/65; PULSE 72; RESP 17; O2SAT 95; BMI 28.5
--- NOTE | 2025-01-17 14:08 | HO.ANESPROP2 ---
Documented by User: Dominique Layton NP 01/30/25 09:39 HPI - Anesthesia Eval Consult details Narrative: 74yo M for L3-4, L4-5 Ant Lumbar Interbody Fusion, 01/31/25 No recent illness - some PND with environmental No CP/SOB with minimal activity r/t to pain/numbness GERD: occassional, no rx Fecal incontinence r/t spine symptoms Reports some localized swelling following local anesthesia with dental work ~20 years ago. Pt is unsure of medication. PMFSH Active Problems Active Problems: All Active Problems Spondylolisthesis, lumbar region (Acute) Past Medical History Medical History Arthritis GERD (gastroesophageal reflux disease) Numbness Weakness SOB (shortness of breath) Sensitivity to the cold Murmur Bowel incontinence Spondylolisthesis Spinal stenosis Somatic dysfunction Depression Back pain Insomnia Impaired executive functioning Anxiety Fracture, humerus Dyspnea Dysphagia Cold intolerance Chronic fatigue Diarrhea BPH (benign prostatic hyperplasia) Anal prolapse Family History Family history of problems with anesthesia: No Surgical History Surgical History History of dental surgery No pertinent past surgical history History of Problems with Anesthesia: Yes (Reports some localized swelling following local anesthesia with dental work ~20 years ago. Pt is unsure of medication.) Social History Social History Are you a primary career services officer to a significant other at home: No Do you presently have visiting nurse or other home services: Yes ([employer]) Patient Tobacco Use Status: Never used Tobacco Use of substances other than those prescribed or required for medical reasons: No Have you been hit, kicked, punched, or otherwise hurt by someone within the past year? If so, by whom?: No Are you DNR?: No Advance Directives: No Advance Directives Information Provided: No Advance Directives on File: No Poor oral hygiene: Yes Meds Allergies Allergy/AdvReac Type Severity Reaction Status Date / Time isopropyl alcohol Allergy Rash Verified 01/31/25 06:31 Anesthesia AdvReac Unknown Swelling Uncoded 01/31/25 06:31 Home Medications ?Medication ?Instructions ?Recorded ?Confirmed ?Last Taken ?Type omega 6-sch-mlu-fish oil 1,200 mg 1 cap PO DAILY 01/16/25 01/17/25 Unknown History (144 mg-216 mg) capsule (Fish Oil) zinc acetate 25 mg (zinc) capsule 25 mg PO DAILY 01/16/25 01/17/25 Unknown History LUTHER 100 mg-theanine 100 1 cap PO DAILY 01/17/25 01/17/25 Unknown History mg-ashwagandha extract 225 mg capsule (LUTHER Soothe) cholecalciferol (vitamin D3) 25 25 mcg PO DAILY 01/17/25 01/17/25 Unknown History mcg (1,000 unit) capsule (Vitamin D3) cyanocobalamin (vitamin B-12) 50 50 mcg PO DAILY 01/17/25 01/17/25 Unknown History mcg tablet (Vitamin B-12) threonine (bulk) (L-Threonine 1 ea miscellaneous DAILY 01/17/25 01/31/25 01/31/25 History crystals) vitamin B complex 1 tab PO DAILY 01/17/25 01/17/25 Unknown History Exam Height,Weight and Vital Signs: Height 5 ft 4 in Weight 75.296 kg Last Vital Signs Pulse 72 01/17/25 13:53 Resp 17 01/17/25 13:53 BP 137/65 01/17/25 13:53 Pulse Ox 95 01/17/25 13:53 O2 Del Method Room Air 01/17/25 13:53 Pertinent Lab Results Pertinent Lab Results: Lab Results 01/17/25 01/17/25 Range/Units 14:47 14:57 WBC 5.8 (4.8-10.8) X10*3/uL RBC 4.25 L (4.60-5.80) X10*6/uL Hgb 13.3 L (14.0-18.0) g/dl Hct 39.6 L (42.0-52.0) % MCV 93.2 (80.0-98.0) fL MCH 31.3 (27.0-33.0) pg MCHC 33.6 (31.0-36.0) g/dl RDW 14.2 (11.0-16.0) % Plt Count 262 (160-400) X10*3/uL MPV 9.9 (9.4-12.4) fL Absolute Nucleated RBC 0.000 (0.0-0.012) X10*3/uL Nucleated RBC % (auto) 0.0 (0.0-0.2) /100WBC Sodium 139 (135-145) mmol/L Potassium 4.2 (3.3-5.1) mmol/L Chloride 106 (96-108) mmol/L Carbon Dioxide 25 (22-29) mmol/L Anion Gap 12 (12-20) BUN 15 (9-16) mg/dL Creatinine 0.74 (0.5-1.4) mg/dL Estim Creat Clear Calc 80.0 Estimated GFR > 60 Random Glucose 93 (60-115) mg/dL Calcium 9.1 (8.4-10.2) mg/dL Blood Type A Positive Antibody Screen NEGATIVE Narrative Narrative: EKG 01/2025 Vent. Rate : 72 BPM Atrial Rate : 72 BPM P-R Int : 132 ms QRS Dur : 80 ms QT Int : 342 ms P-R-T Axes : 15 -27 -4 degrees QTcB Int : 374 ms Sinus rhythm with marked sinus arrhythmia Nonspecific ST abnormality Abnormal ECG No previous ECGs available Airway Mallampati Class: II TM Dist: >3cm Neck ROM: Full Loose/Missing/Broken Teeth: Yes (missing molars, implants throughout) Heart: RRR Lungs: CTAB Assessment and Plan Assessment Anesthesia Assessment: Anesthesia Plan Discussed and PAT Visit Final Anesthetic Review Family History of Problems with Anesthesia: No History of Problems with Anesthesia: Yes (Reports some localized swelling following local anesthesia with dental work ~20 years ago. Pt is unsure of medication.) Documented by User: Maximus Parikh MD 01/31/25 08:11 [facility] Past Medical History Medical History Arthritis GERD (gastroesophageal reflux disease) Numbness Weakness SOB (shortness of breath) Sensitivity to the cold Murmur Bowel incontinence Spondylolisthesis Spinal stenosis Somatic dysfunction Depression Back pain Insomnia Impaired executive functioning Anxiety Fracture, humerus Dyspnea Dysphagia Cold intolerance Chronic fatigue Diarrhea BPH (benign prostatic hyperplasia) Anal prolapse Surgical History Surgical History History of dental surgery No pertinent past surgical history Social History Social History Are you a primary career services officer to a significant other at home: No Do you presently have visiting nurse or other home services: Yes ([employer] ENGINEER) Patient Tobacco Use Status: Never used Tobacco Use of substances other than those prescribed or required for medical reasons: No Have you been hit, kicked, punched, or otherwise hurt by someone within the past year? If so, by whom?: No Are you DNR?: No Advance Directives: No Advance Directives Information Provided: No Advance Directives on File: No Poor oral hygiene: Yes Meds Allergies Allergy/AdvReac Type Severity Reaction Status Date / Time isopropyl alcohol Allergy Rash Verified 01/31/25 06:31 Anesthesia AdvReac Unknown Swelling Uncoded 01/31/25 06:31 Home Medications ?Medication ?Instructions ?Recorded ?Confirmed ?Last Taken ?Type omega 4-mer-gnv-fish oil 1,200 mg 1 cap PO DAILY 01/16/25 01/17/25 Unknown History (144 mg-216 mg) capsule (Fish Oil) zinc acetate 25 mg (zinc) capsule 25 mg PO DAILY 01/16/25 01/17/25 Unknown History LUTHER 100 mg-theanine 100 1 cap PO DAILY 01/17/25 01/17/25 Unknown History mg-ashwagandha extract 225 mg capsule (LUTHER Soothe) cholecalciferol (vitamin D3) 25 25 mcg PO DAILY 01/17/25 01/17/25 Unknown History mcg (1,000 unit) capsule (Vitamin D3) cyanocobalamin (vitamin B-12) 50 50 mcg PO DAILY 01/17/25 01/17/25 Unknown History mcg tablet (Vitamin B-12) threonine (bulk) (L-Threonine 1 ea miscellaneous DAILY 01/17/25 01/31/25 01/31/25 History crystals) vitamin B complex 1 tab PO DAILY 01/17/25 01/17/25 Unknown History Assessment and Plan Final Anesthetic Review NPO: Yes ASA Class: III Final Preanesthetic Review: No Changes in Pt Med Stat, Meds/Allgs Chart Reviewed, Consent Obtained/Reviewed and Anes Risks/Benef Reviewed Patient Risk: Low Procedure Risk: Low Anesthetic Plan Anesthetic Plan: GA Disposition: Standard PACU
[2025-01-17 16:45] LABS: Hematocrit 39.6 % (42.0-52.0); Hemoglobin 13.3 g/dl (14.0-18.0); Mean Corpuscular HGB Conc 33.6 g/dl (31.0-36.0); Mean Corpuscular Hemoglobin 31.3 pg (27.0-33.0); Mean Corpuscular Volume 93.2 fL (80.0-98.0); NRBC Abs Auto 0.000 X10*3/uL (0.0-0.012); NRBC Pct Auto 0.0 /100WBC (0.0-0.2); Platelet Count 262 X10*3/uL (160-400); Red Blood Count 4.25 X10*6/uL (4.60-5.80); White Blood Count 5.8 X10*3/uL (4.8-10.8)
[2025-01-17 17:08] LABS: Anion Gap 12 (12-20); Blood Urea Nitrogen 15 mg/dL (9-16); Calcium 9.1 mg/dL (8.4-10.2); Carbon Dioxide 25 mmol/L (22-29); Chloride 106 mmol/L (96-108); Creatinine Clr Calc Pharmacy 80.0; Estimated Glomerular Filt Rate > 60; Potassium 4.2 mmol/L (3.3-5.1); Sodium 139 mmol/L (135-145)
[2025-01-31] VITALS (14 sets, daily range): BP systolic 95–134; BP diastolic 54–73; PULSE 54–98; RESP 12–20; TEMP 36.2–37.2; O2SAT 92–98; BMI 28.5
--- NOTE | ~2025-01-31 | XR_ITS ---
EXAMINATION: XR ABDOMEN KUB CLINICAL INDICATION: S/P ALIF COMPARISON: None available. TECHNIQUE: AP view of the abdomen. FINDINGS: Bowel gas pattern is normal/nonspecific. There is no focally dilated loop. Moderate fecal material seen throughout the colon in keeping with mild constipation. No abnormal soft tissue calcification. No organomegaly or large abdominal mass. Bony structures demonstrate fusion grafts/disc prostheses at L4-5 and L5-S1 without definite complication seen. XR/XR abdomen 1V IMPRESSION: 1. No acute findings. Electronically signed by: John Christianson MD 01/31/2025 10:35 AM EDT RP
--- NOTE | ~2025-01-31 | FL_ITS ---
EXAMINATION: FL GUIDANCE ONLY HISTORY: L3-L5 ALIF COMPARISON: Correlation is made to plain films of the lumbar spine dated 09/23/2024. TECHNIQUE: Fluoroscopy time: 2 minutes, 10.7 seconds. Cumulative Dose: 74.814 mGy. DAP: 23.895 mGym2 Images: . FINDINGS: Fluoroscopic spot films of the lumbar spine demonstrate anterior lumbar interbody fusion at L3-4 and L4-5. There has been improvement in previously seen L3-4 and L4-5 spondylolisthesis. FL/FL guidance in OR IMPRESSION: Fluoroscopy during procedure. Please see procedure report for additional information. Electronically signed by: Devin Moreno MD 01/31/2025 12:09 PM EDT
--- OUTSIDE RECORDS SUMMARY | 2025-01-31 06:35 | XMS_ITS | Encounter Summary ---
Author Organization [facility] Address [address] [place] [address] [place] [address] Phone Care Team Providers Care Mechanical Reliability Engineer Name Role Phone Lizzy Aguilar MD Unavailable [phone] Unknown, Unknown Primary Care Provider Jus Silva DO Primary Care Provider [phone] Encounter Details Date Type Department Care Team (Late st Contact Info) Description 01/16/2017 Procedure Pass [facility] Radiology [address] [place] [address] Social History Tobacco Use Types Packs/Day Years Used Date Smoking Tobacco: Never Alcohol Use Standard Drinks/Week Comments No 0 (1 standard drink = 0.6 oz pur e alcohol) sober 5 years Sex and Gender Information Value Date Recorded Sex Assigned at Male 07/01/2024 6:40 PM EST Legal Sex Male 5:20 PM EST Gender Identity Male 07/01/2024 6:40 PM EST Sexual Orientation Not on file documented as of this encounter Plan of Treatment Not on file documented as of this encounter Visit Diagnoses Not on filedocumented in this encounter Additional Health Concerns Infection Onset Date Last Indicated Resolved Time CDiff-Risk 10/17/2024 10/17/2024 10/24/2024 1:21 AM EDT Assessment Noted Time PHQ-2 Depression Total Score: 4 09/10/19 17 4:29 PM EDT documented as of this encounter Care Teams Mechanical Reliability Engineer Relationship Specialty Start Date End Date Unknown, Unknown, [address] [place] [address] [place] [address] PCP - General 01/16/17 05/11/24 Jus Buchanan DO [address] [facility] [address] [place] [address] PCP - General Family Medicine 05/12/24 Lizzy Aguilar MD [address] [place] [address] Partners Attributed Provider 10/11/16 02/07/17 documented as of this encounter Additional Source Comments The information contained in this document represents components of the legal health record. It is not the complete legal health record.[facility]
--- OUTSIDE RECORDS SUMMARY | 2025-01-31 06:35 | XMS_ITS | Encounter Summary ---
Author Organization [facility] Address [address] [place] [address] Phone Care Team Providers Care Rent Control Office Manager Name Role Phone Jus Buchanan DO Primary Care Provider + [phone] Reason for Referral * MRI/CAT Scan - Closed Specialty Diagnoses / Procedures Referred By Contac t Referred To Contact Radiology Diagnoses Spinal stenosis, lumbar region without neurogenic claudication Procedures MRI Lumbar Spine CHG MRI, LUMBAR SPINE Jus Buchanan DO [address] [address] Phone: tel: fax: Referral ID Status Reason Start Date Expiration Date Visits Re quested Visits Authorized [id number] Closed 08/08/2024 06/07/2025 1 1 Encounter Details Date Type Department Care Team (Latest Contact Info) Description 08/09/2024 Transcribe Orders Virtual Department [address] [place] [address] Jus Buchanan DO [address] [address] Spinal stenosis, lumbar region without neurogenic claudication (Primary Dx) Social History Tobacco Use Types Packs/Day Years Used Date Smoking Tobacco: Never Alcohol Use Standard Drinks/Week Comments No 0 (1 standard drink = 0.6 oz pur e alcohol) sober 5 years Home Health Assessment: Transportation Answer Date Recorded Lack of Transportation (Medical) No 07/15/2024 Lack of Transportation (Non-Medical) No 07/15/2024 Patient Unable or Declines to Respond No 07/15/2024 Education Answer Date Recorded Are you interested in more education? Not on rich e 10/05/2022 Are you concerned about learning? Not on file 10/05/2022 No 10/05/2022 No 10/05/2022 Digital Access Answer Date Recorded No 11/02/2022 No 11/02/2022 Reliable internet access at home? Not on file 11/02/2022 Device with a working camera? Not on file Intimate Partner Violence Answer Date R ecorded Are you denied basic needs s uch as food, clothing, or medical care? No 07/01/2024 In the past 12 months have y ou been in a relationship with a person who hurts, threatens, or tries to control you? No 07/01/2024 Are you denied basic needs s uch as food, clothing, or medical care? No 07/01/2024 In the past 12 months have y ou been in a relationship with a person who hurts, threatens, or tries to control you? No 07/01/2024 Sex and Gender Information Value Date Recorded Sex Assigned at Male 07/01/2024 6:40 PM EST Legal Sex Male 5:20 PM EST Gender Identity Male 07/01/2024 6:40 PM EST Sexual Orientation Not on file documented as of this encounter Plan of Treatment Not on file documented as of this encounter Results * MRI LUMBAR SPINE (NEURO) WITHOUT CONTRAST (08/12/2024 10:42 AM EST) Anatomical Region Laterality Modality L-spine Magnetic Resonan ce 08/15/2024 11:4 5 AM EDT Impressions 08/15/2024 11:57 AM EDT 1. Severe multilevel lumbar spondylosis in the setting of grade 1 anterolisthesis at L3-L4 and L4-L5. There is resultant severe spinal canal stenosis at L3-L4 and L4-L5, which appears mildly progressed at L3-L4. Narrative 08/15/2024 11:57 AM EDT MRI LUMBAR SPINE (NEURO) WITHOUT CONTRAST Referring clinician's provided indication for this examination in [facility]: Outside Radiology Order; spinal stenosis TECHNIQUE: MRI LUMBAR SPINE (NEURO) WITHOUT CONTRAST Multi-sequence, multi-planar MRI of the lumbar spine was performed without intravenous contrast. COMPARISON: MRI LUMBAR SPINE (NEURO) WITHOUT CONTRAST FINDINGS: LUMBAR SPINE: Alignment and Vertebrae: 0.6 cm anterolisthesis of L3 on L4 and 0.7 cm anterolisthesis of L4 on L5, similar to prior MRI. Vertebral body heights are preserved. Marrow: No bone marrow replacing lesion. Discs and Endplates: Mild disc height loss at L3-L4. Conus: Normal. Soft Tissues: Normal. No prevertebral edema. Other Findings: None. Findings by level: T12-L1: Negative L1-L2: Mild diffuse disc bulge and mild bilateral facet arthropathy, without significant canal or foraminal narrowing. L2-L3: Mild diffuse disc bulge and mild bilateral facet arthropathy, resulting in mild bilateral foraminal narrowing. L3-L4: Grade 1 anterolisthesis with disc uncovering, diffuse disc bulge, and severe bilateral facet arthropathy, resulting in severe spinal canal stenosis that appears mildly progressed compared to prior study. There is impingement of the cauda equina nerve roots. There is also severe bilateral foraminal stenosis. L4-L5: Grade 1 anterolisthesis with disc uncovering, diffuse disc bulge, and severe bilateral facet arthropathy, resulting in severe canal stenosis with cauda equina impingement. There is severe right and moderate left foraminal narrowing. L5-S1: Mild bilateral facet arthropathy. Mild bilateral foraminal narrowing. Procedure Note Anthony Sam MD - 08/15/2024 MRI LUMBAR SPINE (NEURO) WITHOUT CONTRAST Referring clinician's provided indication for this examination in [facility]:Outside Radiology Order; spinal stenosis TECHNIQUE: MRI LUMBAR SPINE (NEURO) WITHOUT CONTRAST Multi-sequence, multi-planar MRI of the lumbar spine was performed withoutintravenous contrast. COMPARISON: MRI LUMBAR SPINE (NEURO) WITHOUT CONTRAST FINDINGS: LUMBAR SPINE: Alignment and Vertebrae: 0.6 cm anterolisthesis of L3 on L4 and 0.7 cmanterolisthesis of L4 on L5, similar to prior MRI. Vertebral body heights are preserved. Marrow: No bone marrow replacing lesion. Discs and Endplates: Mild disc height loss at L3-L4. Conus: Normal. Soft Tissues: Normal. No prevertebral edema. Other Findings: None. Findings by level: T12-L1: Negative L1-L2: Mild diffuse disc bulge and mild bilateral facet arthropathy,without significant canal or foraminal narrowing. L2-L3: Mild diffuse disc bulge and mild bilateral facet arthropathy,resulting in mild bilateral foraminal narrowing. L3-L4: Grade 1 anterolisthesis with disc uncovering, diffuse disc bulge,and severe bilateral facet arthropathy, resulting in severe spinal canalstenosis that appears mildly progressed compared to prior study. There isimpingement of the cauda equina nerve roots. There is also severebilateral foraminal stenosis. L4-L5: Grade 1 anterolisthesis with disc uncovering, diffuse disc bulge,and severe bilateral facet arthropathy, resulting in severe canal stenosiswith cauda equina impingement. There is severe right and moderate leftforaminal narrowing. L5-S1: Mild bilateral facet arthropathy. Mild bilateral foraminalnarrowing. IMPRESSION: 1. Severe multilevel lumbar spondylosis in the setting of grade 1anterolisthesis at L3-L4 and L4-L5. There is resultant severe spinal canalstenosis at L3-L4 and L4- L5, which appears mildly progressed at L3-L4. us Jus Buchanan DO IMG MR XSPECIALTY Final Resu lt documented in this encounter Visit Diagnoses Diagnosis Spinal stenosis, lumbar region without neurogenic claudication- Primary Spinal stenosis, lumbar region without neurogenic claudication documented in this encounter Additional Health Concerns Infection Onset Date Last Indicated Resolved Time CDiff-Risk 10/17/2024 10/17/2024 10/24/2024 1:21 AM EDT Assessment Noted Time PHQ-2 Depression Total Score: 4 09/10/19 17 4:29 PM EDT documented as of this encounter Care Teams Rent Control Office Manager Relationship Specialty Start Date End Date Jus Buchanan DO [address] [address] PCP - General Family Medicine 12/5/24 documented as of this encounter Additional Source Comments The information contained in this document represents components of the legal health record. It is not the complete legal health record.[facility]
--- OUTSIDE RECORDS SUMMARY | 2025-01-31 06:35 | XMS_ITS | Encounter Summary ---
Author Organization [facility] Address [facility] [address] [place] [phone] Phone Care Team Providers Care Proposal Coordinator Name Role Phone Gilberto Buchananin Rigoberto REDDY Primary Care Provider + [phone] Encounter Details Date Type Department Care Team (Late st Contact Info) Description 08/09/2024 Procedure Pass [address] [place] [address] Social History Tobacco Use Types Packs/Day Years [...] on file documented as of this encounter Last Filed Vital Signs Vital Sign Reading Time Taken Comments Blood Pressure - - Pulse - - Temperature - - Respiratory Rate - - Oxygen Saturation - - Inhaled Oxygen Concentration - - Weight 65.8 kg (145 lb) 08/11/2024 8:24 PM EST Height 162.6 cm (5' 4 ) 08/11/2024 8:24 PM EST Body Mass Index 24.89 08/11/2024 8:24 PM EST documented in this encounter Plan of Treatment Not on file documented as of this encounter Visit Diagnoses Not on filedocumented in this encounter Additional Health Concerns Infection Onset Date Last Indicated Resolved Time CDiff-Risk 10/17/2024 10/17/2024 10/24/2024 1:21 AM EDT Assessment Noted Time PHQ-2 Depression Total Score: 4 09/10/19 17 4:29 PM EDT documented as of this encounter Care Teams Proposal Coordinator Relationship Specialty Start Date End Date Jus Buchanan DO [address] [address] PCP - General Family Medicine 05/12/24 documented as of this encounter Additional Source Comments The information contained in this document represents components of the legal health record. It is not the complete legal health record.[facility]
--- OUTSIDE RECORDS SUMMARY | 2025-01-31 06:35 | XMS_ITS | Clinical Summary ---
Author Organization [facility] Address [address] [facility] [address] [place] [address] Phone Care Team Providers Care Testing Tech Name Role Phone Jus Buchanan Primary Care Provider [phone] Allergies No known active allergies Medications ibuprofen (ADVIL,MOTRIN) 400 MG tablet [The details of the medication are not available because there are pending changes by a home health clinician.] 12 tablet 5 Active Additional Information Patient not taking.Reason: Other, Informant: Self, Reported on 07/15/2024 KRILL OIL ORAL Take 1 capsule by mouth daily. 5 Active thymol/chloroph yllin (CHLOROPHYLL ORAL) Take 1 capsule by mouth daily. 5 Active GINSENG ORAL Take 1 capsule by mouth daily. 5 Active ZINC ORAL Take 1 tablet by mouth daily. 5 Active acetaminophen (TYLENOL) 500 MG tablet Take 1,000 mg by mouth every 8 (eight) hours as needed for pain (specific location in comments). 5 Active oxyCODONE (OXY-IR) 5 mg capsule Take 5 mg by mouth every 8 (eight) hours as needed for pain (specific location in comments). 5 Active MAGNESIUM GLYCINATE ORAL Take 360 mg by mouth daily. 5 Active 5-hydroxytrypto stone, 5-HTP, (NATROL 5-HTP) 50 mg Cap Take 1 CAPSU by mouth nightly at bedtime. 5 Active theanine 100 mg Take 200 mg by mouth daily. 5 Active melatonin 3 mg Tab Take 3 mg by mouth daily. 5 Active Active Problems Problem Noted Date Diagnosed Date Primary osteoarthritis involving multiple joints 09/15/2016 Encounters Date Type Department Care Team Description 11/16/2024 1:00 PM EDT Office Visit [facility] Spine Medicine [address] [place] [address] Jimmy Garcia MD Lumbar radiculopathy (Primary Dx); Lumbar adjacent segment disease with spondylolisthesis; Lumbar disc herniation 11/08/2024 Telephone [facility] [address] [facility], [address] [place] [address] Sri Soto RN 11/07/2024 Telephone [facility] [place] [facility] [address] [facility] [address], [address] [place] [address] Sri Soto RN 11/07/2024 Telephone [facility] [place] [facility] [address] [facility], 7th Floor, [address] [place] [address] Sri Soto RN from Last 3 Months Social History Tobacco Use Types Packs/Day Years [...] PM EST Sexual Orientation Not on file Last Filed Vital Signs Vital Sign Reading Time Taken Comments Blood Pressure 116/74 11/16/2024 1:08 PM EDT Pulse 64 11/16/2024 1:08 PM EDT Temperature 36.7 C (98.1 F) 07/01/2024 10:50 PM EST Respiratory Rate 16 07/01/2024 10:50 PM EST Oxygen Saturation 96% 07/15/2024 1:15 PM EST Inhaled Oxygen Concentration - - Weight 73 kg (161 lb) 11/16/2024 1:08 PM EDT Height 162.6 cm (5' 4 ) 11/16/2024 1:08 PM EDT Body Mass Index 27.64 11/16/2024 1:08 PM EDT Plan of Treatment Health Maintenance Due Date Last Done Comments Adult Td,Tdap Booster 1950 LIPID PANEL 1950 HEPATITIS C SCREENING 1967 COLOGUARD 1994 COLONOSCOPY 1994 COLORECTAL CANCER SCREENING 1994 FIT TEST 1994 FOBT 1994 SIGMOIDOSCOPY 1994 VIRTUAL COLONOSCOPY 1994 PNEUMOCOCCAL VACCINES (50+ y ears) (1 of 1 - PCV) 1999 ZOSTER VACCINES (1 of 2) 1999 DEPRESSION SCREENING 09/09/2017 09/09/2016 COVID-19 VACCINE (2023-2 5 season) 2024 RSV VACCINE (1 - 1-dose 75+ series) 2024 INFLUENZA VACCINE (#1) 2025 SMOKING STATUS SCREENING (On ce After 26 Yrs) Completed 07/18/2024 HEPATITIS A VACCINES Aged Out No long er eligible based on patient's age to complete this topic HIB VACCINES Aged Out No longer eligi ble based on patient's age to complete this topic MENINGOCOCCAL VACCINES (ACWY) Aged Out No longer eligible based on patient's age to complete this topic MENINGOCOCCAL VACCINES (B) Aged Out N o longer eligible based on patient's age to complete this topic Medical Devices Not on file Insurance [employer] [id number] MEDICARE REPLACEMENT MEDICARE REPLACEMENT Care Teams Testing Tech Relationship Specialty Start Date End Date [facility] [address] [address] PCP - General Family Medicine 05/12/24 Additional Source Comments The information contained in this document represents components of the legal health record. It is not the complete legal health record.[facility]
--- OUTSIDE RECORDS SUMMARY | 2025-01-31 06:35 | XMS_ITS | Encounter Summary ---
Author Organization [facility] Address [address] [place] [address] [place] [address] Phone Care Team Providers Care Utility Operator Yarn Name Role Phone Jus Buchanan Primary Care Provider [phone] Encounter Details Date Type Department Care Team (Latest Contact Info) Description 10/17/2024 Transcribe Orders [facility] [address] [address] Macy Zavala PA [address] [place] [address] Diarrhea, unspecified type (Primary Dx) Social History Tobacco Use Types [...] 07/01/2024 Are you denied basic needs s [facility] as food, clothing, or medical care? No [...] as of this encounter Plan of Treatment Scheduled Orders Name Type Priority Associated Diagnoses Orde r Schedule Clostridioides (Clostridium) difficile, PCR Microbiology Routine Diarrhea, unspecified type Expected: 10/17/2024, Expires: 10/17/2025 Calprotectin, stool Lab Routine Diarrhea, unspecified type Expected: 10/17/2024, Expires: 10/17/2025 Fecal leukocyte examination Microbiology Routine Diarrhea, unspecified type Expected: 10/17/2024, Expires: 10/17/2025 Giardia and cryptosporidium screen Microbiology Routine Diarrhea, unspecified type Expected: 10/17/2024, Expires: 10/17/2025 Ova and parasites, stool Microbiology Routine Diarrhea, unspecified type Expected: 10/17/2024, Expires: 10/17/2025 Ova and parasites, stool Microbiology Routine Diarrhea, unspecified type Expected: 10/17/2024, Expires: 10/17/2025 Ova and parasites, stool Microbiology Routine Diarrhea, unspecified type Expected: 10/17/2024, Expires: 10/17/2025 Pancreatic Elastase, Stool Lab Routine Diarrhea, unspecified type Expected: 10/17/2024, Expires: 10/17/2025 Stool culture Microbiology Routine Diarrhea, unspecified type Expected: 10/17/2024, Expires: 10/17/2025 Stool fat/fiber exam Lab Routine Diarrhea, unspecified type Expected: 10/17/2024, Expires: 10/17/2025 documented as of this encounter Visit Diagnoses Diagnosis Diarrhea, unspecified type- Primary documented in this encounter Additional Health Concerns Infection Onset Date Last Indicated Resolved Time CDiff-Risk 10/17/2024 10/17/2024 10/24/2024 1:21 AM EDT Assessment Noted Time PHQ-2 Depression Total Score: 4 09/10/19 17 4:29 PM EDT documented as of this encounter Care Teams Utility Operator Yarn Relationship Specialty Start Date End Date Jus Buchanan DO [address] [address] PCP - General Family Medicine 05/12/24 documented as of this encounter Additional Source Comments The information contained in this document represents components of the legal health record. It is not the complete legal health record.[facility]
--- OUTSIDE RECORDS SUMMARY | 2025-01-31 06:35 | XMS_ITS | Encounter Summary ---
Author Organization [facility] Address [facility] [employer] [facility] ([place] [place]) [address] [place] [address] Phone Care Team Providers Care Gps Field Data Collector Name Role Phone Unknown, Unknown Primary Care Provider Jus Silva DO Primary Care Provider [phone] Encounter Details Date Type Department Care Team (Late st Contact Info) Description 12/22/2022 Procedure Pass [facility], [facility] [address] [place] [address] Social History Tobacco Use Types Packs/Day Years Used Date Smoking Tobacco: Never Alcohol Use Standard Drinks/Week Comments No 0 (1 standard drink = 0.6 oz pur e alcohol) sober 5 years Education Answer Date Recorded Are you interested in more education? Not on rich e 10/05/2022 Are you concerned about learning? Not on file 10/05/2022 No 10/05/2022 No 10/05/2022 Digital Access Answer Date Recorded No 11/02/2022 No 11/02/2022 Reliable internet access at home? Not on file 11/02/2022 Device with a working camera? Not on file Sex and Gender Information Value Date Recorded [...] documented as of this encounter Care Teams Gps Field Data Collector Relationship Specialty Start Date End Date Unknown, Unknown, MD PCP - General 01/16/17 05/11/24 Jus Buchanan DO [address] [address] PCP - General Family Medicine 05/12/24 documented as of this encounter Additional Source Comments The information contained in this document represents components of the legal health record. It is not the complete legal health record.[facility]
--- OUTSIDE RECORDS SUMMARY | 2025-01-31 06:35 | XMS_ITS | Clinical Summary ---
Author Organization [facility], Address [address] [place] [address] Phone Care Team Providers Care Industrial Rehabilitation Consultant Name Role Phone Jus Buchanan DO Primary Care Provider [phone] Encounters Date Type Department Care Team Description 11/04/2024 1:45 PM EDT Office Visit [facility] Vascular Access [address] [place] [address] Goyo De León MD Degeneration of lumbar intervertebral disc (Primary Dx) 11/01/2024 Telephone [facility] Vascular [address] [place] [address] Yadira Osborn from Last 3 Months Social History Tobacco Use Types Packs/Day Years Used Date Smoking Tobacco: Never Assessed Sex and Gender Information Value Date Recorded Sex Assigned at Not on file Legal Sex Male 12:11 PM EDT Gender Identity Not on file Sexual Orientation Not on file Plan of Treatment Upcoming Encounters Date Type Department Care Team (Late st Contact Info) Description 01/31/2025 7:30 AM EDT Scheduled Only [facility] Vascular Access [address] [place] [address] Goyo De León MD [address] [place] [address] Health Maintenance Due Date Last Done Comments Colorectal Cancer Screening: Annual FOBT 1998 Colorectal Cancer Screening: Colonoscopy 1998 Colorectal Cancer Screening: Sigmoidoscopy 1998 Pneumococcal Vaccine: 50+ Ye ars (1 of 1 - PCV) 1999 Influenza Vaccine (#1) 2025 Hepatitis B Vaccine Aged Out No longe r eligible based on patient's age to complete this topic Insurance [facility] [employer] SNP ([id number]) [employer] [id number] Care Teams Industrial Rehabilitation Consultant Relationship Specialty Start Date End Date Jus Buchanan DO [address] [place] [address] PCP - General 10/26/24
--- OUTSIDE RECORDS SUMMARY | 2025-01-31 06:35 | XMS_ITS | Clinical Summary ---
Author Organization [facility] Address [address] [place] [address] Care Team Providers Care Paving Foreman Name Role Phone Unavailable Primary Care Provider [...] 78 03/10/2017 4:30 PM EDT Temperature 37.1 C (98.7 F) 03/10/2017 4:30 PM EDT Respiratory Rate 20 03/10/2017 4:30 PM EDT Oxygen Saturation 98% 03/10/2017 4:30 PM EDT Inhaled Oxygen Concentration - - Weight 80.3 kg (177 lb) 03/10/2017 4:30 PM EDT Height - - Body Mass Index - - Plan of Treatment Not on file Insurance [facility] (MEDICAID)
--- OUTSIDE RECORDS SUMMARY | 2025-01-31 06:35 | XMS_ITS | Encounter Summary ---
Author Organization [facility] Address [facility] [employer] [facility] [address] [place] [id number] Phone Care Team Providers Care Filtrose Crusher Name Role Phone Unknown, Unknown Primary Care Provider Jus Silva DO Primary Care Provider [phone] Reason for Referral * MRI/CAT Scan - Closed Specialty Diagnoses / Procedures Referred By Ruddy lawson Referred To Contact Radiology Diagnoses Low back pain, unspecified back pain laterality, unspecified chronicity, unspecified whether sciatica present Spondylolisthesis, unspecified spinal region Procedures MRI Lumbar Spine CHG MRI, LUMBAR SPINE Jus Buchanan DO [address] [address] Phone: tel: fax: Referral ID Status Reason Start Date Expiration Date Visits Re quested Visits Authorized [id number] Closed 12/18/2022 04/19/2023 1 1 Encounter Details Date Type Department Care Team (Latest Contact Info) Description 12/22/2022 Transcribe Orders Virtual Department [address] [place] [address] [place] [address] [address] Low back pain, unspecified back pain laterality, unspecified chronicity, unspecified whether sciatica present (Primary Dx); Spondylolisthesis, unspecified spinal region Social History Tobacco Use Types Packs/Day Years [...] * MRI LUMBAR SPINE (NEURO) WITHOUT CONTRAST (01/15/2023 1:54 PM EDT) Anatomical Region Laterality Modality L-spine Magnetic Resonan ce 01/17/2023 12:2 4 AM EDT Impressions 01/17/2023 12:37 AM EDT Multilevel spinal canal stenoses, very severe at L4-5, severe L3-4, moderate to severe L5-S1, and mild at L2-3. Multilevel neuroforaminal stenoses, severe at L3-4 and L4-5, severe right and moderate to severe left at T10-11, mild to moderate at L5-S1, and mild at L1-2 and L2-3. Endplate marrow edema at L3-4, may reflect an axial pain generator. Narrative 01/17/2023 12:37 AM EDT MRI LUMBAR SPINE (NEURO) WITHOUT CONTRAST TECHNIQUE: MRI LUMBAR SPINE (NEURO) WITHOUT CONTRAST COMPARISON: None FINDINGS: ALIGNMENT: 6 mm L3-4 anterolisthesis. 8 mm L4-5 anterolisthesis. MARROW: No compression fracture or marrow replacing lesion. DISCS: Disc desiccation T10-L2 and L3-S1. L3-4 endplate marrow edema. CONUS: Normal appearance and terminates at L1. PARASPINAL SOFT TISSUES: Mild posterior paraspinal muscle atrophy. 1.4 cm left anterior renal midpole T2 hyperintense structure, likely cyst. 1.4 cm right lower pole T2 hyperintense structure, likely cyst. Prostatomegaly on the ball points inspector images. FINDINGS BY LEVEL: T10-T11: Diffuse disc bulge, facet arthropathy, and thickening of ligamentum flavum. No spinal canal stenosis. Severe right and moderate to severe left neuroforaminal stenosis. 11-T12: Diffuse disc bulge, facet arthropathy, and thickening of ligamentum flavum. No spinal canal or neuroforaminal stenosis. T12-L1:Diffuse disc bulge, facet arthropathy, and thickening of ligamentum flavum. No spinal canal or neuroforaminal stenosis. L1-2: Diffuse disc bulge, facet arthropathy, and thickening of ligamentum flavum. Disc bulge contacts the transiting L2 nerve roots. Mild spinal canal stenosis. Mild neuroforaminal stenosis. L2-3: Diffuse disc bulge, facet arthropathy, and thickening of ligamentum flavum. Mild spinal canal stenosis. Mild neuroforaminal stenosis. L3-4: Diffuse disc bulge, disc uncovering, central disc protrusion, facet arthropathy, and thickening of ligamentum flavum. Severe spinal canal stenosis. Severe neuroforaminal stenosis. L4-5: Diffuse disc extrusion, facet arthropathy, and thickening of ligamentum flavum. Very severe spinal canal stenosis. Severe neuroforaminal stenosis. L5-S1: Diffuse disc bulge, central disc extrusion, posterior annular fissure, facet arthropathy, and thickening of ligamentum flavum. Moderate to severe spinal canal stenosis. Mild to moderate neuroforaminal stenosis. Procedure Note Aidee Schneider MD - 01/17/2023 MRI LUMBAR SPINE (NEURO) WITHOUT CONTRAST TECHNIQUE: MRI LUMBAR SPINE (NEURO) WITHOUT CONTRAST COMPARISON: None FINDINGS: ALIGNMENT: 6 mm L3-4 anterolisthesis. 8 mm L4-5 anterolisthesis. MARROW: No compression fracture or marrow replacing lesion. DISCS: Disc desiccation T10-L2 and L3-S1. L3-4 endplate marrow edema. CONUS: Normal appearance and terminates at L1. PARASPINAL SOFT TISSUES: Mild posterior paraspinal muscle atrophy. 1.4 cmleft anterior renal midpole T2 hyperintense structure, likely cyst. 1.4 cmright lower pole T2 hyperintense structure, likely cyst. Prostatomegaly onthe ball points inspector images. FINDINGS BY LEVEL: T10-T11: Diffuse disc bulge, facet arthropathy, and thickening ofligamentum flavum. No spinal canal stenosis. Severe right and moderate tosevere left neuroforaminal stenosis. 11-T12: Diffuse disc bulge, facet arthropathy, and thickening ofligamentum flavum. No spinal canal or neuroforaminal stenosis. T12-L1:Diffuse disc bulge, facet arthropathy, and thickening of ligamentumflavum. No spinal canal or neuroforaminal stenosis. L1-2: Diffuse disc bulge, facet arthropathy, and thickening of ligamentumflavum. Disc bulge contacts the transiting L2 nerve roots. Mild spinalcanal stenosis. Mild neuroforaminal stenosis. L2-3: Diffuse disc bulge, facet arthropathy, and thickening of ligamentumflavum. Mild spinal canal stenosis. Mild neuroforaminal stenosis. L3-4: Diffuse disc bulge, disc uncovering, central disc protrusion, facetarthropathy, and thickening of ligamentum flavum. Severe spinal canalstenosis. Severe neuroforaminal stenosis. L4-5: Diffuse disc extrusion, facet arthropathy, and thickening ofligamentum flavum. Very severe spinal canal stenosis. Severeneuroforaminal stenosis. L5-S1: Diffuse disc bulge, central disc extrusion, posterior annularfissure, facet arthropathy, and thickening of ligamentum flavum. Moderateto severe spinal canal stenosis. Mild to moderate neuroforaminalstenosis. 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 Multilevel neuroforaminal stenoses, severe at L3-4 and L4-5, severe rightand moderate to severe left at T10-11, mild to moderate at L5-S1, and mildat L1-2 and L2-3. Endplate marrow edema at L3-4, may reflect an axial pain generator. us Jus Buchanan DO IMG MR XSPECIALTY Final Resu lt documented in this encounter Visit Diagnoses Diagnosis Low back pain, unspecified back pain laterality, unspecified chronicity, unspecified whether sciatica present- Primary Spondylolisthesis, unspecified spinal region Low back pain, unspecified back pain laterality, unspecified chronicity, unspecified whether sciatica present Spondylolisthesis, unspecified spinal region documented in this encounter Additional Health Concerns Infection Onset Date Last Indicated Resolved Time CDiff-Risk 10/17/2024 10/17/2024 10/24/2024 1:21 AM EDT Assessment Noted Time PHQ-2 Depression Total Score: 4 09/10/19 17 4:29 PM EDT documented as of this encounter Care Teams Filtrose Crusher Relationship Specialty Start Date End Date Unknown, Unknown, MD PCP - General 01/16/17 05/11/24 Jus Buchanan DO [address] [address] PCP - General Family Medicine 05/12/24 documented as of this encounter Additional Source Comments The information contained in this document represents components of the legal health record. It is not the complete legal health record.[facility]
[2025-01-31] MEDS: Lactated Ringers 1,000 ML 100 ML IVCONT (06:58)
--- NOTE | 2025-01-31 06:58 | MHC.SHP ---
Pre-Procedural Eval Section A - 24 Hr Update-Section A only Date of Service: 01/31/25 The patient is an INPATIENT: No Changes since office visit: No Cold of Flu in the past 2 weeks, No New Medical Problems, No Changes in Medication and No Patient answered all questions The patient has been examined within 24 hours of the surgical procedure. The History & Physical has been completed within 30 days and I have reviewed it.: No Section B - Complete if H&P > 30 days Chief Complaint: s/p L3-5 ALIF Allergies: Allergies Allergy/AdvReac Type Severity Reaction Status Date / Time isopropyl alcohol Allergy Rash Verified 01/31/25 06:31 Anesthesia AdvReac Unknown Swelling Uncoded 01/31/25 06:31 Review of Systems Sugical H&P ROS: Negative: Constitution, Cardiovascular, Respiratory, Neurological, Psychiatric, Hem-Onc, Allergic/Immunologic, Gastrointestinal, Genitourinary, Musculoskeletal, Integumentary, Endocrine and Eyes/Ears/Nose/Throat Exam Surgical H&P Exam: Normal: HEENT, Normal: Heart, Normal: Lungs, Normal: Extremities, Normal: Abdomen, Normal: Skin and Normal: Neurological (awake, alert,oriented x 3 ) Plan Diagnosis/Plan: Unchanged L3-4, L4-5 anterior lumbar interbody fusion Time Spent With Patient Time: Total time managing care of this patient today __5__ minutes.
--- NOTE | 2025-01-31 07:07 | PHA.MEDREC ---
Pharmacy Consult ? Medication Reconciliation Pharmacy has completed the medication reconciliation. Reviewed med rec done by nursing, matches claims.
--- NOTE | 2025-01-31 10:11 | W.PM.OPN ---
Operative Note Operative Note Date of Service: 01/31/25 Narrative: The patient was brought to the operating room, positioned on the table supine and general anesthesia was administered. The abdomen was clipped and then prepped and draped in the usual sterile fashion. Villanueva was inserted. After timeout was done, incision was made in the paraumbilical area starting 4 cm above the umbilicus just to the left of the midline 7 cm long. It was brought through subcutaneous tissue and the left anterior rectus sheath in line with the skin incision . The pre-peritoneal plane was entered, peritoneum was bluntly dissected off and iliac artery pulse was felt. Spermatic cord and ureter were preserved. Self-retaining retractor with two deep blades was inserted and peritoneum protected with moist gauzes. Left internal iliac vein was identified and dissection was carried along the medial surface of the iliac vein up to the bifurcation. The middle sacral vessels were transected and L4-L5 disc space was bluntly and sharply dissected using bipolar cautery staying directly on the surface of the spine. The midline of the disk space was marked with C-arm image guide. Left common iliac artery was then mobilized laterally and segmental branches were divided . Left iliac vein was reflected to the right exposing L3-L4 disk space between the iliac artery and the vein. Midline was marked there as well. Dr. Valenzuela then proceeded with the discectomy and fusion of the two levels, which will be dictated separately by him. After this was done, hemostasis was checked and was excellent. Left ureter was examined prior to closure and was intact. There was good left external iliac artery pulse. Diluted 0.5% Marcaine and Lidocaine was injected in the fascia and subcutaneous tissue. The incision was irrigated and closed by layers using , 0 Maxone for the anterior rectus sheath, 3-0 Vicryl for subcutaneous tissue and 4-0 Monocryl for skin. Exo-fin glue was then applied.
--- NOTE | 2025-01-31 11:32 | P.OP_ITS ---
Operative Note Operative Note Date of Service: 01/31/25 Narrative: Preoperative Diagnosis: 1.) Lumbar degenerative disc disease L3-4, L4-5; lumbar spondylolisthesis L3-4, L4-5; partial cauda equina syndrome Procedure: L3-4, L4-5 discectomy, arthrodesis and implantation cage through an anterior lumbar approach (ALIF) ; anterior instrumentation L3-L5; posterior instrumented fusion L3-L5; allograft Indication for Surgery Lumbar degenerative disc disease Consent Informed Consent was obtained for this operation. I have explained the nature, purpose and benefits of the operation. I have discussed the risks and benefit of the operation including possible complications or adverse events with patient/family. Alternative(s) were discussed with the patient with their relative benefits and risks as well as the consequences of not accepting the operation were included in obtaining consent. Surgeon: DEENA BLAIR MD, PHD Procedure Assisted By: VEL DE LEÓN MD and GISSEL Holbrook Description of Procedure This 74-year-old male presented with a partial cauda equina syndrome due to a spondylolisthesis L3-4 and L4-5 with associated severe central spinal stenosis. The patient was offered an anterior lumbar interbody fusion L3-4 L4-5 with anterior instrumentation and posterior instrumented fusion. The procedure complications were explained. The patient was consented. The patient was brought to the operating room and endotracheally intubated. The patient was put in a supine position. Prep and drape was done followed by timeout. Dr. De León, co- surgeon, provided the access to the L3-4 and L4-5 disc spaces through an anterior approach. He was assisted by physician perioperative assistant who performed manual retraction. He will dictate the approach in a separate operative note. When the disc spaces were exposed I took over the procedure. We started with the L4-5 level. The iliac vein was retracted laterally. An annulotomy was done followed by a partial discectomy. Sequential trial implants were inserted and advanced towards the posterior wall of the disc space. I completed the discectomy and prepare the endplates. Then a 34 x 26 x 13 and 8 degree lordosis Astura cage filled with allograft was inserted into the disc space. Anterior instrumentation was added to secure the implant. A separate attached plate was locked down with two nails with the length 25 mm were inserted into the L 4 vertebral body and one nail of 25 mm long was inserted into the L5 vertebral body. A good reduction of the spondylolisthesis was obtained. Then attention was turned to the L3-4 level where a similar procedure was performed. Significant instability was noted at this level. The endplates were prepared after which a 34 x 26 x 13 and 8 degree lordosis Astura cage filled with allograft was inserted into the disc space which again reduce the spondylolisthesis. A separate attached plate was locked down with two nails with the length 25 mm were inserted into the L3 vertebral body and one nail of 25 mm long was inserted into the L4 vertebral body. The retractor was removed and hemostasis was done by Dr. Vila who closed the incision. This marked first part of the procedure. Accordingly the patient was turned prone on the Brenden spine table and 2 C arms were installed for fluoroscopy. Prep and drape was done followed by a second timeout. 2 paramedian incisions were made lateral from the L3-L5 pedicles. The muscle fascia was opened and the musculature was split bluntly to expose the posterolateral gutter. The following steps were taken for pedicle screw placement: The pediguard tap was used to create a transpedicular trajectory into the vertebral body. A K wire was advanced. A specially designed instrument was advanced over the K wire to decorticate the posterolateral gutter. Pedicle screw was advanced after which the K wire was removed. Following the steps pedicle screws were placed in the bilateral L3, L4 and L5 pedicles. Total of 6 screws were placed with the following measurements: 6.5 x 45 mm in the bilateral L3 and L4 pedicles and 6.5 x 40 mm in the bilateral L5 pedicle. A 70 mm marichuy was tunneled bilaterally and locked down with locking caps. The extension towers were removed. The posterolateral fusion was completed by laying down allograft in the posterolateral gutter. Hemostasis was done. The paramedian incisions were closed with an 0 Vicryl to fascia and 3-0 Vicryl to subdermal layer. Steri- Strips were used to approximate the incision. An OpSite with Tegaderm was used to cover the incisions. All sponge and needle counts were correct. The patient was extubated and transported in stable condition to recovery room. The physician perioperative assistant was critical for the following aspects of surgery: anterior exposure, including closure of the incision. Insertion pedicle screws and closure of the paramedian incisions Anesthesia: General Estimated Blood Loss (ml): 50 Duration of Surgery: 4 hours Complications: None Postoperative Plan: Admit to inpatient for clinical observation
--- NOTE | 2025-01-31 17:54 | PC.NURSE ---
Fc removed at 1754 per pts request, GISSEL Ruffin placed order for removal. Pt tolerated well
[2025-02-01 03:13] VITALS: BP 142/66; PULSE 81; RESP 18; TEMP 36.6; O2SAT 96
--- NOTE | 2025-02-01 04:03 | PC.NURSE ---
Patient reports dribbling of urine when he feels urge to urinate. He states this is new post op. Villanueva was removed last evening.
--- NOTE | 2025-02-01 07:08 | HO.NEUROPN_ITS ---
Neurosurgery Operative Note Date of Service: 02/01/25 Narrative: Procedure: L3-5 ALIF POD: 1 Henrik is a pleasant 74-year-old male who underwent L3-[address] Valenzuela yesterday. He was seen lying in bed this morning on 3-S. He reports that overall it feels as though his pain has improved since surgery. He reports improved sensation near his genital area. He has been up OOB to the bathroom with assist, and has been tolerating his current diet. His pain is well controlled with current pain regimen. Afebrile, vital signs stable. Full strength 5/5 bilateral LE. The patient is able to get up out of bed and rise to his feet with the assistance of his walker for support. Aterior incision closed with strei-strip. Abdomen soft & non-tender. Back dressings have some staining without signs of hematoma. No active sanguineous drainage. Area is dry. Plan: Bradley 74-year-old male who underwent L3-[address] Valenzuela yesterday. He was evaluated alongside the attending Neurosurgeon Dr. Valenzuela this AM. He is progressing as expected, and functionally should be OK to d ischarge home later today vs. tomorrow. We would like the patient evaluated by our colleagues in Physical therapy this morning and we will appreciate recommendations regarding disposition. Daryn Valenzuela MD,PhD [facility]
[2025-02-01 08:00] VITALS: BP 117/54; PULSE 73; RESP 18; TEMP 37.1; O2SAT 93
--- NOTE | 2025-02-01 08:54 | HO.POSTANES ---
Post Anesthesia Evaluation Post Anesthesia Evaluation Date of Service: 02/01/25 Vital Signs: Vital Signs Temp Pulse Resp BP Pulse Ox O2 Del Method 02/01/25 08:00 98.8 F 73 18 117/54 L 93 Room Air 02/01/25 03:13 97.8 F 81 18 142/66 H 96 Room Air 01/31/25 23:47 98.9 F 98 20 134/60 95 Room Air Anesthesia: General Mental Status: Awake Pain Control: Satisfactory Nausea/Vomiting: None Hydration: Adequate Anesthesia-Related Issues: No Anes. Related Issues
[2025-02-01] MEDS: oxyCODONE HCl Immed Release 5 MG TABLET PO (09:42)
[2025-02-01 11:42] VITALS: BP 131/64; PULSE 92; RESP 18; TEMP 36.7; O2SAT 97
--- NOTE | 2025-02-01 13:44 | P.DS_ITS ---
DS: Providers Provider Date of Service: 02/01/25 Date of admission: 01/31/25 06:28 Date of discharge: 02/01/25 Primary care physician: Unknown Physician DS: Summary Time Attestation Discharge Coordination Time (in mins): 15 Quality: Safe Use of Opioids Does Pt have an Active Cancer Diagnosis on the Problem List?: No Quality: Stroke Does the patient have a stroke diagnosis?: No Physical Exam Vital Signs: Vital Signs: Last Vital Signs Temp 98.0 F 02/01/25 11:42 Pulse 92 02/01/25 11:42 Resp 18 02/01/25 11:42 BP 131/64 02/01/25 11:42 Pulse Ox 97 02/01/25 11:42 O2 Del Method Room Air 02/01/25 11:42 O2 Flow Rate 1 01/31/25 15:34 BMI result Body Mass Index 28.5 Discharge Plan Discharge Anticipated Discharge Date/Time: 02/01/25 13:44 Patient Disposition: Home Health Service Discharge Diagnosis: s/p L3-5 ALIF Referrals: Physician,Unknown J [Primary Care Provider, Medical] - 1 Week Discharge Medications: New docusate sodium 100 mg capsule 100 mg PO BID Qty: 30 0RF oxycodone 5 mg tablet See Rx Instructions .ROUTE .COMPLEX PRN (Reason: pain) Qty: 30 0RF Rx Instructions: Take 1-2 tablets by mouth every 4 hours; Partial Fill upon patient request. Continued zinc acetate 25 mg (zinc) Capsule 25 mg PO DAILY L-Threonine Crystals 1 ea MISCELLANEOUS DAILY LUTHER Soothe 100-100-225 mg Capsule 1 cap PO DAILY Vitamin B-12 50 mcg Tablet 50 mcg PO DAILY vitamin B complex Tablet 1 tab PO DAILY cholecalciferol (vitamin D3) [Vitamin D3] 25 mcg (1,000 unit) Capsule 25 mcg PO DAILY Held omega 3-jpw-fux-fish oil [Fish Oil] 1,200 (144-216) mg Capsule 1 cap PO DAILY Hold Instructions: Resume on 03/04/25. Discharge Orders: Discharge Order (Routine); Ordered 02/01/25 Ordered By: Daryn Loredo Diet: Advance to usual diet Activity on Discharge: As tolerated Stand Alone Forms: Patient Portal Discharge page Print Language: Hungarian Activity Restrictions/Additional Instructions: After your spinal surgery we ask you to observe the following restrictions/guidelines: Activity: It is normal to feel some discomfort as you increase your activity, but that will improve with time. We ask you avoid heavy lifting or acitivities that cause pain. As a general rule, 8lbs is a safe limit for lifting right after surgery. Walk as much as you feel comfortable but not to exhaustion. You will feel extra tired the first few days after surgery. Stay well hydrated. It is OK to walk up and down stairs You may return to driving when you are off narcotics (such as vicodin, oxycodone, dilaudid, etc), and you are back to normal functional capacity. If you have any concerns please check with office before driving. Return to work is specific to each patient and each surgery, so please speak with your doctor/PA at first follow up. Please bring paperwork such as FMLA at that time if you need it filled out. Medications: Do not take your fish oil for 1 month; it causes excessive bleeding and will slow wound healing We recommend you take 1,000mg Tylenol every 8 hours for the first few weeks after surgery, if you do not have any liver issues and can tolerate this medication. Do not exceed 4,000mg daily. We will give you a short supply of narcotics after surgery (usually one weeks worth). If you need more please call the office but do not use more than prescribed. You will need to give our office 48 hours notice if you need narcotics refilled and we do not fill narcotics on weekends or evenings. If you are on a narcotic, it is a good idea to take a stool softener such as colace or senna to avoid constipation If you take blood thinner such as aspirin, Plavix, Coumadin, Effient, Eliquis etc for conditions such as Afib, DVT, Pulmonary embolus, coronary disease, stents etc please speak with your surgeon about specific details as to when you can resume these medications. You can resume NSAIDs on post op day 1 (eg: Motrin, Naproxen, etc). Follow up: Please call the office, , after surgery to arrange a 3 week follow up for wound check. Wound Care: You may remove your dressing on the first day after surgery. ?You may ?leave open to air. Please do not remove the steri strips underneath. they will fall off on their own in one week. IT IS NORMAL FOR THE WOUND TO OOZE OR BE BLOODY FOR A FEW DAYS AFTER SURGERY. ?IF THIS HAPPENS JUST PLACE NEW DRESSING OVER IT TO AVOID STAINING CLOTHES. You may shower on post op day # 1 We ask that you do not let the water soak the wound. If it does get wet, just towel dry lightly. Please do not scrub your incision or place any type of chemical/ointment on the wound. No tub baths, pools or jacuzzis for one month. If you have any leaking or redness from your wound, or fevers, please call the office. Care Plan Goals: Return to normal activity as tolerated Health Concerns: None Plan of Treatment: Follow-up in clinic in 2-3 weeks Assessment: Procedure: L3-5 ALIF POD: 1 Henrik is a pleasant 74-year-old male who underwent L3-[address] Valenzuela yesterday. He was seen lying in bed this morning on 3-S. He reports that overall it feels as though his pain has improved since surgery. He reports improved sensation near his genital area. He has been up OOB to the bathroom with assist, and has been tolerating his current diet. His pain is well controlled with current pain regimen. Afebrile, vital signs stable. Full strength 5/5 bilateral LE. The patient is able to get up out of bed and rise to his feet with the assistance of his walker for support. Aterior incision closed with strei-strip. Abdomen soft & non-tender. Back dressings have some staining without signs of hematoma. No active sanguineous drainage. Area is dry. Plan: Bradley 74-year-old male who underwent L3-[address] Valenzuela yesterday. He was evaluated alongside the attending Neurosurgeon Dr. Valenzuela this AM. He is progressing as expected, and functionally should be OK to discharge home later today vs. tomorrow. We would like the patient evaluated by our colleagues in Physical therapy this morning and we will appreciate recommendations regarding disposition. Daryn Valenzuela MD,PhD [facility] Addenda: The the patient was evaluated by Physical therapy who is recommending discharge home with health services. I sent to prescriptions to the pharmacy here at [facility]. I also provided the patient with a prescription for a front wheel walker. I will complete a [id number] encounter note.
--- NOTE | 2025-02-01 13:50 | P.F2F_ITS ---
Service Date Service Date: 02/01/25 Encounter Date of encounter: 02/01/25 Reasons for Services Signs and symptoms assessed: s/p L3-5 ALIF Reason for retirement: neurological assessment, wound care and medication management Reason for physical therapy: home safety and mobility, therapeutic exercises and ADL training Homebound: Leaving the home is medically contraindicated at this time without the asist of a device and/or another person due th the listed conditions above and below. Reason homebound: unsteady gait / fall risk, leg weakness, pain with ambulation and weakness related to hospital stay Certification: Based on the above findings, I certify that this patient is confined to the home and needs intermittent retirement care, physical therapy and/or speech therapy, or continues to need occupational therapy. The patient is under my care, and I have initiated the establishment of the plan of care. The patient will be followed by a physician who will periodically review the plan of care. Time Spent With Patient Time: Total time managing care of this patient today __15__ minutes.
[2025-02-01 14:14] VITALS: BP 101/80; PULSE 91; RESP 18; TEMP 36.6; O2SAT 96
--- NOTE | 2025-02-01 14:22 | MHC.CM.PN ---
Addendum entered by Kemi Zayas RN 02/01/25 14:37: [facility] accepted. Patient dc'd prior to acceptance. LM for patient to inform. Original Note: IMM delivered. Patient lives in a home alone. Reports he is independent w/ dressing, but has a [employer] 3 days/wk to assist w/ bathing d/t bowel incontinence. No DME, but has been provided w/ an rx for wheeled walker to use post op. PCP Jus Buchanan, DO No HCP. CM provided education and offered assistance. Patient declined. DP: Medically cleared for dc home w/ services. [employer] will transport. No preferred agency - referrals sent via [employer] awaiting response.
== END 2025-02-01 14:27 | disposition home health service (06) | DRG 448 ==
LOC: HO.SSSA 06:32 → HO.S3 12:07
PROVIDERS: Nurse Practitioner; Admitting Provider Neurological Surgery; Visit Provider Neurological Surgery
PROC: 0SG10A0 Fusion of 2 or more Lumbar Vertebral Joints with Interbody Fusion Device, Anterior Approach, Anterior Column, Open Approach (ICD-10-PCS; principal; 2025-01-31 07:30)
DX: M43.16 Spondylolisthesis, lumbar region (principal); G83.4 Cauda equina syndrome; Z79.899 Other long term (current) drug therapy
CPT/HCPCS: 36415; 74018; 80048; 85027; 86850; 86900; 86901; 93005; 97161; C1713; J0131; J0690; J1100; J1171; J1200; J1885; J2003; J2250; J2405; J2704; J3010; L8699

== ENCOUNTER → 2025-01-31 06:28 | Outpatient (BNV) | payer OTHER, SELFPAY | PROVIDERS: Admitting Provider Neurological Surgery; Visit Provider Surgery | DX: M43.16 Spondylolisthesis, lumbar region (principal) | CPT/HCPCS: 20930; 22558; 22585; 22612; 22614; 22840; 22845; 22853; 99024; 99499; G0180 ==

== ENCOUNTER 2025-02-15 15:17 | Outpatient (AMB) | payer OTHER, SELFPAY ==
--- OUTSIDE RECORDS SUMMARY | 2025-02-03 14:00 | XMS_ITS | Encounter Summary ---
Author Organization [facility] Address [address] [facility] [address] [place] [address] Phone Care Team Providers Care Conduit Bender Name Role Phone Gilberto Buchananin Rigoberto REDDY Primary Care Provider + [phone] Reason for Visit * Auth/Cert (Routine) Specialty Diagnoses / Procedures Referred By Ruddy t Referred To Contact Referral ID Status Reason Start Date Expiration Date Visits Re quested Visits Authorized [id number] 1 1 Encounter Details Date Type Department Care Team (Late st Contact Info) Description 02/03/2025 2:00 PM EDT Home [facility] Visit [facility] [address] [place] [phone] Debbi Oconnell, RN [address] [place] [address] [email or web address] SN OASIS START OF CARE (SOC) Social History Tobacco Use Types Packs/Day Years Used Date Smoking Tobacco: Never Alcohol Use Standard Drinks/Week Comments No 0 (1 standard drink = 0.6 oz pur e alcohol) sober 5 years Home Health Assessment: Transportation Answer Date Recorded Lack of Transportation (Medical) No 02/03/2025 Lack of Transportation (Non-Medical) No 02/03/2025 Patient Unable or Declines to Respond No 02/03/2025 Education Answer Date Recorded Are you interested [...] Sign Reading Time Taken Comments Blood Pressure 122/78 02/03/2025 1:25 PM EDT Pulse 61 02/03/2025 1:25 PM EDT Temperature 36.2 C (97.2 F) 02/03/2025 1:25 PM EDT Respiratory Rate 18 02/03/2025 1:25 PM EDT Oxygen Saturation 94% 02/03/2025 1:25 PM EDT Inhaled Oxygen Concentration - - Weight 73 kg (161 lb) 02/03/2025 1:25 PM EDT Height 193 cm (6' 4 ) 02/03/2025 1:25 PM EDT Body Mass Index 19.6 02/03/2025 1:25 PM EDT documented in this encounter Plan of Treatment Upcoming Encounters Date Type Department Care Team (Late st Contact Info) Description 02/17/2025 3:00 AM EDT Home [facility] Visit [facility] [address] [place], [place] [phone] Debbi Oconnell, JACKY [address], [place] [phone] 02/17/2025 1:00 PM EDT Home Care Visit [facility] [address] [place] [phone] Katiana Crystal, MANAGER IMPLEMENTATION [address] [place] [address] [email or web address] 02/20/2025 3:15 AM EDT Home Care Visit [facility] [address] [place] [phone] Katiana Crystal, MANAGER IMPLEMENTATION [address] [place] [address] [email or web address] 02/22/2025 12:45 AM EDT Home Care Visit [facility] [address] [place] [phone] Katiana Crystal, MANAGER IMPLEMENTATION [address] [place] [address] [email or web address] 02/22/2025 2:00 AM EDT Home Care Visit [facility] [address] [place] [phone] Debbi Oconnell RN [address] [place] [address] [email or web address] 02/27/2025 12:45 AM EDT Home Care Visit [facility] [address] [place] [phone] Katiana Crysatl, MANAGER IMPLEMENTATION [address] [place] [address] [email or web address] 03/01/2025 Home Care Visit [facility] [address] [place] [phone] Katiana Crystal, MANAGER IMPLEMENTATION [address] [place] [address] [email or web address] 03/01/2025 3:00 AM EDT Home Care Visit [facility] [address] [place] [address] Debbi Oconnell RN [address] [place] [address] [email or web address] 03/06/2025 Home Care Visit [facility] [address] [place] [address] Katiana Crystal, MANAGER IMPLEMENTATION [address] [place] [address] [email or web address] 03/08/2025 Appointment [facility] [address] [place] [phone] Lanny Workman, PT [address] [place] [address] [email or web address] 03/08/2025 2:30 AM EDT Home Care Visit [facility] [address] [place] [phone] Debbi Oconnell RN [address] [place] [address] [email or web address] 03/15/2025 2:30 AM EDT Home Care Visit [facility] [address] [place] [phone] Debbi Oconnell RN [address] [place] [address] [email or web address] 03/22/2025 2:00 AM EDT Home Care Visit [facility] [address] [place] [phone] Debbi Oconnell RN [address] [place] [address] [email or web address] 03/30/2025 12:30 AM EDT Appointment [facility] [address] [place] [phone] Debbi Oconnell RN [address] [place] [address] [email or web address] documented as of this encounter Visit Diagnoses Not on filedocumented in this encounter Additional Health Concerns Assessment Noted Time PHQ-2 Depression Total Score: 4 09/10/19 17 4:29 PM EDT documented as of this encounter Home Health Visit - Care Plan Visit Details Visit Type -SN OASIS START O F CARE (SOC) Discipline -Shelter Problems Problem Description Start Date Status Goals Interve ntions HH - Infection - Actual or Risk of Disciplines: All Active Home Health Disciplines 02/03/2025 Active 1 goal linked to scheduled/document ed intervention 2 goal interventions scheduled/document ed in this visit HH - Falls - Risk of Disciplines: All Active Home Health Disciplines 02/03/2025 Active 1 goal linked to scheduled/document ed intervention 2 goal interventions scheduled/document ed in this visit HH - Standard of Care Disciplines: All Active Home Health Disciplines 02/03/2025 Active 1 goal linked to scheduled/document ed intervention 7 goal interventions scheduled/document ed in this visit HH - Pain Disciplines: All Active Home Health Disciplines 02/03/2025 Active 1 goal linked to scheduled/document ed intervention 2 goal interventions scheduled/document ed in this visit HH - Telehealth/Virtua l Care Disciplines: All Active Home Health Disciplines 02/03/2025 Active 1 goal linked to scheduled/document ed intervention 1 goal intervention scheduled/document ed in this visit HH - Medication Management Disciplines: All Active Home Health Disciplines 02/03/2025 Active 1 goal linked to scheduled/document ed intervention 2 goal interventions scheduled/document ed in this visit HH - Health Maintenance Disciplines: All Active Home Health Disciplines 02/03/2025 Active 1 goal linked to scheduled/document ed intervention 3 goal interventions scheduled/document ed in this visit HH - Focus of Care and Teaching Disciplines: All Active Home Health Disciplines w/RD 02/03/2025 Active 1 goal linked to scheduled/document ed intervention 1 goal intervention scheduled/document ed in this visit HH - Advance Care Planning Disciplines: All Active Home Health Disciplines 02/03/2025 Active 1 goal linked to scheduled/document ed intervention 1 goal intervention scheduled/document ed in this visit HH - Emergency Planning - Knowledge of Disciplines: All Active Home Health Disciplines 02/03/2025 Active 1 goal linked to scheduled/document ed intervention 3 goal interventions scheduled/document ed in this visit HH - Wound Disciplines: All Active Home Health Disciplines 02/03/2025 Active 1 goal linked to scheduled/document ed intervention 1 goal intervention scheduled/document ed in this visit Goals Goal Associated Problem Outcome Goal Met? Visit Notes HH - Patient will have no new infection; any new infection that occurs will be identified and treated promptly; existing infection will resolve without complication Description: Patient and caregiver(s) will demonstrate understanding of infection prevention, monitoring, and treatment as appropriate HH - Infection - Actual or Risk of No HH - Knowledge and management of fall prevention measures. HH - Falls - Risk of No HH - Achieve care management for a safe to home/community discharge from homecare HH - Standard of Care No HH - Frequency of pain interfering with patient's activity or movement will improve with activity or movement by discharge. Description: Pain will be managed over the course of care. Patient's acceptable level of pain is 0 - no pain. HH - Pain No HH - Telehealth visits along with in-person home visits will be utilized when appropriate to achieve optimal wellness and home safety Description: Telehealth visits along with in-person home visits will be utilized when appropriate to achieve optimal wellness and home safety related to assessment, demonstration, observation, teaching and training. HH - Telehealth/Virtual Care No HH - Safe medication management, avoid unnecessary harm related to medication errors and/or interactions HH - Medication Management No HH - Patient preferences will be utilized to achieve optimal wellness and home safety. HH - Health Maintenance No HH - Communication and collaboration to achieve patient goals HH - Focus of Care and Teaching No HH - Verbalize awareness of Advance Care Planning. HH - Advance Care Planning No HH - Knowledge of options for managing care in the event of an emergency related situation. HH - Emergency Planning - Knowledge of No HH - Demonstrate/verbalize wound care management, wound/lesion will be free from complications HH - Wound No Interventions Intervention Associated Problem/Goal Status Variance Visit Notes HH - I/E infection Description: adhere to infection precautions, infection prevention measures and s/s of infection Problem:HH - Infection - Actual or Risk of Goal:HH - Patient will have no new infection; any new infection that occurs will be identified and treated promptly; existing infection will resolve without complication Completed HH - Assess infection risk and s/s Problem:HH - Infection - Actual or Risk of Goal:HH - Patient will have no new infection; any new infection that occurs will be identified and treated promptly; existing infection will resolve without complication Completed HH - Complete fall risk assessment scale Problem:HH - Falls - Risk of Goal:HH - Knowledge and management of fall prevention measures. Completed HH - I/E fall prevention measures Description: cognitive impairment: strategies to minimize impairments with memory deficits, distractibility, judgement, impulsivity, and safety awareness, diagnosis/age related changes/prior history of falls: symptoms and side effects of illness/injury/history of falls placing patient at increased risk for falls. may include management of dizziness/orthostasis, environmental hazards: modification of environment to include clear walkways, secure animals, and move frequently used items within reach, use of equipment, impaired functional mobility: supervision for mobility/activity, appropriate footwear and as indicated safe use of assistive device(s), incontinence: management of incontinence to include safe toileting, need for absorbent garments, address urgency/frequency , pain affecting level of function: impact of pain on an increased risk of falls, poly pharmacy: side effects of medications placing a patient at high risk for a fall and visual impairment: address need to optimize vision, adequate lighting, and functional vision Problem: - Falls - Risk of Goal: - Knowledge and management of fall prevention measures. Completed HH - Assess vital signs, pulse oximetry, pain, and as indicated, orthostatic vital signs Description: use agency-specific parameters Problem: - Standard of Care Goal:HH - Achieve care management for a safe to home/community discharge from homecare Completed HH - Assess skin integrity Problem: - Standard of Care Goal:HH - Achieve care management for a safe to home/community discharge from homecare Completed HH - I/E management of skin integrity and non-wound impairment Description: skin care Problem: - Standard of Care Goal:HH - Achieve care management for a safe to home/community discharge from homecare Completed HH - Assess safety needs of patient (other than falls) Problem: - Standard of Care Goal:HH - Achieve care management for a safe to home/community discharge from homecare Completed HH - I/E discharge plan Problem:HH - Standard of Care Goal:HH - Achieve care management for a safe to home/community discharge from homecare Completed - Complete Yrn scale at SOC and weekly Problem:HH - Standard of Care Goal:HH - Achieve care management for a safe to home/community discharge from homecare Completed HH - Assess weight Problem:HH - Standard of Care Goal:HH - Achieve care management for a safe to home/community discharge from homecare Completed HH - Assess pain Problem:HH - Pain Goal:HH - Frequency of pain interfering with patient's activity or movement will improve with activity or movement by discharge. Completed HH - I/E pain management Problem:HH - Pain Goal:HH - Frequency of pain interfering with patient's activity or movement will improve with activity or movement by discharge. Completed HH - Assess the patient's access/technology, monitoring device availability, cognitive, mental, physical ability, and willingness to effectively participate in telehealth care Problem:HH - Telehealth/Virtual Care Goal:HH - Telehealth visits along with in-person home visits will be utilized when appropriate to achieve optimal wellness and home safety Completed The patient has: 1. Reliable Wi-Fi/Internet access: Yes HH - I/E medication management: administration, purpose, dosages, preparation, setup, scheduling, side effects, food/drug interactions, and potential complications as indicated Description: Update patient's copy of medication list as needed. Problem:HH - Medication Management Goal:HH - Safe medication management, avoid unnecessary harm related to medication errors and/or interactions Completed HH - Complete medication review every visit and medication reconciliation as indicated. Pharmacy information: Description: each visit Problem:HH - Medication Management Goal:HH - Safe medication management, avoid unnecessary harm related to medication errors and/or interactions Completed HH - Assess the patient's care preferences, goals, and strengths, the assessment of the patient's mental, psychosocial, and cognitive status were completed, and the following were identified: Description: call prior to visit be treated at home optimistic Problem:HH - Health Maintenance Goal:HH - Patient preferences will be utilized to achieve optimal wellness and home safety. Completed HH - Assess immunizations Description: OTHER: (DATE): Up to date Problem:HH - Health Maintenance Goal:HH - Patient preferences will be utilized to achieve optimal wellness and home safety. Completed HH - I/E immunizations Problem:HH - Health Maintenance Goal:HH - Patient preferences will be utilized to achieve optimal wellness and home safety. Completed HH - Focus of care, teaching completed and plan for next visit Problem: - Focus of Care and Teaching Goal:HH - Communication and collaboration to achieve patient goals Completed Primary Clinical Focus this Visit & Instruction Provided: Patient being admitted to services for disease and medication management. patient underwent L3-5 ALIF at [facility]. pt with comorbidities of osteoarthritis, depression, anxiety amongst several others. Patient was discharged home with oxycodone and colace. patient presented with positive affect and mood and reported pain. sn called pcp's office and requested follow up appointment for pt and obtained appointmentwith surgeon for thursdayfeb 21 at 1:[address] [place] [address]. Meds reconciled during visit. 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 sn educated pt on lifting 8lbs or heavier and avoid engaing in activities that causes pain. 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 Plan for Next Visit Specific Focus & Education Needed: incision site care, cvp assessment, pain teaching and mgmt New Orders: SOC Updated Discharge Plan: When incision is healed, patient becomes stable and services no longer medically necessary HH - I/E advance directive information. Written information provided to the patient and caregiver, as indicated. The patient has: Description: other: Full code Problem:HH - Advance Care Planning Goal:HH - Verbalize awareness of Advance Care Planning. Completed HH - I/E management of care in an urgent or emergency (ER) situation: When to call your Home Care Team/911, ER plans, supplies, evacuation, when to contact local ER officials and how to stay informed Problem:HH - Emergency Planning - Knowledge of Goal:HH - Knowledge of options for managing care in the event of an emergency related situation. Completed HH - Emergency planning assessment: the emergency plan, supplies needed, emergency contact numbers and an evacuation plan were reviewed Description: Patient is/are knowledgeable of emergency plans. Problem:HH - Emergency Planning - Knowledge of Goal:HH - Knowledge of options for managing care in the event of an emergency related situation. Completed HH - Establish an individualized emergency plan: Description: Evacuation Plan is: evacuate Priority Medical Needs are: N/A A triage code has been assigned. A triage code and emergency plan will be reassessed for continued accuracy. Specific risks based on location: earthquakes, extreme cold/snow, extreme heat, fire, floods and high winds An emergency supply list has been provided. Problem:HH - Emergency Planning - Knowledge of Goal:HH - Knowledge of options for managing care in the event of an emergency related situation. Completed HH - Wound care: Description: Surgical site on abdomen and lower Back Area covered with steri Strips SN to monitor site for and s/s of infection, provide intervention as needed and notify provider Problem:HH - Wound Goal:HH - Demonstrate/verbaliz e wound care management, wound/lesion will be free from complications Completed documented in this encounter Care Teams Conduit Bender Relationship Specialty Start Date End Date Jus Buchanan DO [address] [address] PCP - General Family Medicine 05/12/24 documented as of this encounter Additional Source Comments The information contained in this document represents components of the legal health record. It is not the complete legal health record.[facility]
--- NOTE | 2025-02-15 15:18 | HO.SPINEOV ---
Intake Visit Reasons: post op Intake Note: Mr. Jiang is here today for his 1st post op. Cost Accounting Analyst Required: No Allergies isopropyl alcohol Allergy (Verified 01/31/25 06:31) Rash Anesthesia Adverse Reaction (Unknown, Uncoded 01/31/25 06:31) Swelling Assessment & Plan Assessment & Plan (1) Spondylolisthesis, lumbar region: Code(s): M43.16 - Spondylolisthesis, lumbar region Category: Medical Plan Procedure: L3-4, L4-5 ALIF Henrik is a pleasant 74-year-old male who comes in today for his 1st postoperative visit after having a L3-[address] Valenzuela. He reports that his pain has been difficult to manage since surgery. He extensively expressed concerns regarding pain control, but also stated that his pain is often times well controlled and he is able to take a single 5 mg oxycodone every 4 hours instead of 2 oxycodone. He additionally has been using his gabapentin 300 mg q.h.s.. He did ask if he is able to take a dose of gabapentin throughout the day if his symptoms flare-up, and I encouraged him to do this is long as he is responsible with it. He is accompanied by his son to this visit today, and they both asked many questions regarding the postoperative healing course in his current medications. They wished to discuss the pathophysiology of gabapentin and oxycodone, and also wishes to discuss the underlying causes of postoperative inflammation. In addition to this they wished to review his x-ray imaging from surgery; therefore I populated the flouroscopy photos and explained the surgery to them. No new neurological deficits. The patient ambulates well and rises from a seated position without difficulty. He uses no assistive devices to ambulate. His anterior incision site and posterior incisions are closed and well healing with no signs of edema/drainage. I would like to follow up with Henrik's again in 6 weeks for his 2nd postoperative visit. I will order x-rays to be done prior to this visit. Daryn Valenzuela MD,PhD [facility] Orders: Orders XR lumbar spine 4V min 02/15/25 M43.16 - Spondylolisthesis, lumbar region Coding Level of Care Code Global (76221) Diagnoses Spondylolisthesis, lumbar region M43.16
--- OUTSIDE RECORDS SUMMARY | 2025-02-15 18:17 | XMS_ITS | Encounter Summary ---
Author Organization [facility] Address [address] [place] [address] [place] [phone] Phone Care Team Providers Care Supply Chain Development Manager Name Role Phone Jus Buchanan Primary Care Provider [phone] Encounter Details Date Type Department Care Team (Latest Contact Info) Description 10/17/2024 Transcribe Orders [facility] [address] [address] Macy Zavala PA [address] [place] [address] Diarrhea, unspecified type (Primary Dx) Social History [...] as of this encounter Plan of Treatment Upcoming Encounters Date Type Department Care Team (Late st Contact Info) Description 02/17/2025 3:00 AM EDT Home [facility] Visit [facility] [address] [place] [phone] Debbi Oconnell, RN [address] [place] [address] 02/17/2025 1:00 PM EDT Home Care Visit [facility] [address] [place] [phone] Katiana Crystal, NUT CRACKER [address] [place] [address] [email or web address] 02/20/2025 3:15 AM EDT Home Care Visit [facility] [address] [place] [phone] Katiana Crystal, NUT CRACKER [address] [place] [address] [email or web address] 02/22/2025 12:45 AM EDT Home Care Visit [facility] [address] [place] [phone] Katiana Crystal, NUT CRACKER [address] [place] [address] 02/22/2025 2:00 AM EDT Home Care Visit [facility] [address] [place] [phone] Debbi Oconnell RN [address] [place] [address] [email or web address] 02/27/2025 12:45 AM EDT Home Care Visit [facility] [address] [place] [phone] Katiana Crystal, NUT CRACKER [address] [place] [address] [email or web address] 03/01/2025 Home Care Visit [facility] [address] [place] [address] Katiana Crystal, NUT CRACKER [address] [place] [address] [email or web address] 03/01/2025 3:00 AM EDT Home Care Visit [facility] [address] [place] [phone] Debbi Oconnell RN [address] [place] [address] [email or web address] 03/06/2025 Home Care Visit [facility] [address] [place] [phone] Katiana Crystal, NUT CRACKER [address] [place] [address] [email or web address] 03/08/2025 Appointment [facility] [address] [place] [phone] Lanny Workman, PT [address] [place] [address] [email or web address] 03/08/2025 2:30 AM EDT Home Care Visit [facility] [address] [place] [phone] Debbi Oconnell RN [address] [place] [address] [email or web address] 03/15/2025 2:30 AM EDT Home Care Visit [facility] [address] [place] [address] Debbi Oconnell RN [address] [place] [address] [email or web address] 03/22/2025 2:00 AM EDT Home Care Visit [facility] [address] [place] [address] Debbi Oconnell RN [address] [place] [address] 03/30/2025 12:30 AM EDT Appointment [facility] [address] [place] [address] Debbi Oconnell RN [address] [place] [address] [email or web address] Scheduled Orders Name Type Priority Associated Diagnoses [...] documented as of this encounter Care Teams Supply Chain Development Manager Relationship Specialty Start Date End Date Jus Buchanan DO [address] [address] PCP - General Family Medicine 05/12/24 documented as of this encounter Additional Source Comments The information contained in this document represents components of the legal health record. It is not the complete legal health record.[facility]
--- OUTSIDE RECORDS SUMMARY | 2025-02-15 18:17 | XMS_ITS | Clinical Summary ---
Author Organization [facility] Address [address] [place] [address] Care Team Providers Care Fur Storage Clerk Name Role Phone Unavailable Primary Care Provider [...] Plan of Treatment Not on file Insurance [facility] (MEDICAID)
--- OUTSIDE RECORDS SUMMARY | 2025-02-15 18:17 | XMS_ITS | Clinical Summary ---
Author Organization [facility] Address [address] [facility] [address] [place] [phone] Phone Care Team Providers Care Salt Refiner Name Role Phone Jus Buchanan Primary Care Provider [phone] Allergies No known active allergies Medications ibuprofen [...] capsule Take 5 mg by mouth every 4 (four) hours as needed for pain (specific location in comments). 1-2 tabs 5 Active MAGNESIUM GLYCINATE ORAL Take 360 mg by mouth daily. 5 Active 5-hydroxytrypto stone, 5-HTP, (NATROL 5-HTP) 50 mg Cap Take 1 CAPSU by mouth nightly at bedtime. 5 Active theanine 100 mg Take 200 mg by mouth daily. Active melatonin 3 mg Tab Take 3 mg by mouth daily. Active docusate sodium (COLACE) 100 MG capsule Take 100 mg by mouth 2 (two) times a day. 5 Active Active Problems Problem Noted Date Diagnosed Date Primary osteoarthritis involving multiple joints 09/15/2016 Encounters Date Type Department Care Team Description 02/15/2025 Episode Documentation Update [facility] [address] [place] [phone] Aurora Mendoza 02/09/2025 12:30 PM EDT Home Care Visit [facility] [address] [place] [phone] Kierra Davis, STAVE PLANER TENDER STAVE PLANER TENDER HOME VISIT 02/08/2025 3:00 PM EDT Home Care Visit [facility] [address] [place] [phone] Angelica Ramirez LPN BODY SHOP MANAGER HOME VISIT 02/08/2025 Home Care Visit [facility] [address] [place] [phone] Gia Zhang, PT TELEPHONE ENCOUNTER 02/07/2025 Episode Documentation Update [facility] [address] [place] [phone] 02/06/2025 10:00 AM EDT Home Care Visit [facility] [address] [place] [address] Gia Zhang, PT PT EVALUATION 02/04/2025 Plan of Care Documentation [facility] [address] [place] [phone] 02/03/2025 2:00 PM EDT Home Care Visit [facility] [address] [place] [phone] Debbi Oconnell, JACKY SN OASIS START OF CARE (SOC) 02/01/2025 Orders Only [facility] [address] [place] [address] Homehealth, Interface ProviderMD 11/16/2024 1:00 PM EDT Office Visit [facility] [address] [place] [address] Jimmy Garcia MD Lumbar radiculopathy (Primary Dx); Lumbar adjacent segment disease with spondylolisthesis; Lumbar disc herniation from Last 3 Months Social History Tobacco [...] Sign Reading Time Taken Comments Blood Pressure 120/72 02/09/2025 12:24 PM EDT Pulse 67 02/09/2025 12:24 PM EDT Temperature 36.7 C (98.1 F) 02/09/2025 12:24 PM EDT Respiratory Rate 18 02/08/2025 1:45 PM EDT Oxygen Saturation 99% 02/09/2025 12:24 PM EDT Inhaled Oxygen Concentration - - Weight 73 kg (161 lb) 02/03/2025 1:25 PM EDT Height 193 cm (6' 4 ) 02/03/2025 1:25 PM EDT Body Mass Index 19.6 02/03/2025 1:25 PM EDT Plan of Treatment Upcoming Encounters Date Type Department Care Team (Late st Contact Info) Description 02/17/2025 3:00 AM EDT Home Care Visit [facility] [address] [place] [phone] Debbi Oconnell, JACKY [address] [place] [address] 02/17/2025 1:00 PM EDT Home Care Visit [facility] [address] [place] [address] Katiana Crystal, STAVE PLANER TENDER [address] [place] [address] 02/20/2025 3:15 AM EDT Home Care Visit [facility] [address] [place] [address] Katiana Crystal, STAVE PLANER TENDER [address] [place] [address] 02/22/2025 12:45 AM EDT Home Care Visit [facility] [address] [place] [phone] Katiana Crystal, STAVE PLANER TENDER [address] [place] [address] 02/22/2025 2:00 AM EDT Home Care Visit [facility] [address] [place] [phone] Debbi Oconnell RN [address] [place] [address] 02/27/2025 12:45 AM EDT Home Care Visit [facility] [address] [place] [address] Katiana Crystal, STAVE PLANER TENDER [address] [place] [address] [email or web address] 03/01/2025 Home Care Visit [facility] [address] [place] [address] Katiana Crystal, STAVE PLANER TENDER [address] [place] [address] 03/01/2025 3:00 AM EDT Home Care Visit [facility] [address] [place] [phone] Debbi Oconnell RN [address] [place] [address] 03/06/2025 Home Care Visit [facility] [address] [place] [address] Katiana Crystal, STAVE PLANER TENDER [address] [place] [address] 03/08/2025 Appointment [facility] [address] [place] [address] Lanny Workman, PT [address] [place] [address] 03/08/2025 2:30 AM EDT Home Care Visit [facility] [address] [place] [phone] Debbi Oconnell RN [address] [place] [address] 03/15/2025 2:30 AM EDT Home Care Visit [facility] [address] [place] [address] Debbi Oconnell RN [address] [place] [address] 03/22/2025 2:00 AM EDT Home Care Visit [facility] [address] [place] [address] Debbi Oconnell RN [address] [place] [address] 03/30/2025 12:30 AM EDT Appointment [facility] [address] [place] [phone] Debbi Oconnell RN [address] [place] [address] Health Maintenance Due Date Last Done Comments Adult Td,Tdap Booster 1950 LIPID PANEL 1949 HEPATITIS C SCREENING 1967 COLOGUARD 1994 COLONOSCOPY 1994 COLORECTAL CANCER SCREENING 1994 FIT TEST 1994 FOBT 1994 SIGMOIDOSCOPY 1994 VIRTUAL COLONOSCOPY 1994 PNEUMOCOCCAL VACCINES (50+ y ears) (1 of 1 - PCV) 1999 ZOSTER VACCINES (1 of 2) 1999 DEPRESSION SCREENING 09/09/2017 09/09/2016 RSV VACCINE (1 - 1-dose 75+ series) 2024 INFLUENZA VACCINE (#1) 2025 COVID-19 VACCINE ( - 2023-2 5 season) 2025 SMOKING STATUS SCREENING (On ce After [...] Devices Not on file Insurance [employer] [id number] [employer] [id number] MEDICARE REPLACEMENT Care Teams Salt Refiner Relationship Specialty Start Date End Date Jus Buchanan DO [address] [address] PCP - General Family Medicine 05/12/24 Additional Source Comments The information contained in this document represents components of the legal health record. It is not the complete legal health record.[facility]
--- OUTSIDE RECORDS SUMMARY | 2025-02-15 18:17 | XMS_ITS | Encounter Summary ---
Author Organization [facility] Address [address] [facility] [address] [place] [address] Phone Care Team Providers Care Technical Delivery Manager Name Role Phone Chanelgrace Lizzy Stahl MD Unavailable [phone] Unknown, Unknown Primary Care Provider Jus Silva DO Primary Care Provider + [phone] Encounter Details Date Type Department Care Team (Late st Contact Info) Description 01/16/2017 Procedure Pass [facility] Radiology [address] [place] [address] Social History Tobacco Use Types Packs/Day Years [...] Encounters Date Type Department Care Team (Late Contact Info) Description 02/17/2025 3:00 AM EDT Home Care Visit [facility] [address] [place] [address] Debbi Oconnell, JACKY [address] [place], [place] [phone] 02/17/2025 1:00 PM EDT Home Care Visit [facility] [address] [place] [address] Katiana Crystal, MONUMENT MASON [address] [place] [address] [email or web address] 02/20/2025 3:15 AM EDT Home Care Visit [facility] [address] [place] [address] Katiana Crystal, MONUMENT MASON [address] [place] [address] [email or web address] 02/22/2025 12:45 AM EDT Home Care Visit [facility] [address] [place] [phone] Katiana Crystal, MONUMENT MASON [address] [place] [address] [email or web address] 02/22/2025 2:00 AM EDT Home Care Visit [facility] [address] [place] [phone] Debbi Oconnell RN [address] [place] [address] [email or web address] 02/27/2025 12:45 AM EDT Home Care Visit [facility] [address] [place] [phone] Katiana Crystal, MONUMENT MASON [address] [place] [address] [email or web address] 03/01/2025 Home Care Visit [facility] [address] [place] [phone] Katiana Crystal, MONUMENT MASON [address] [place] [address] [email or web address] 03/01/2025 3:00 AM EDT Home Care Visit [facility] [address] [place] [address] Debbi Oconnell RN [address] [place] [address] [email or web address] 03/06/2025 Home Care Visit [facility] [address] [place] [address] Katiana Crystal, MONUMENT MASON [address] [place] [address] [email or web address] 03/08/2025 Appointment [facility] [address] [place] [address] Lanny Workman, PT [address] [place] [address] [email or web address] 03/08/2025 2:30 AM EDT Home Care Visit [facility] [address] [place] [phone] Debbi Oconnell RN [address] [place] [address] [email or web address] 03/15/2025 2:30 AM EDT Home Care Visit [facility] [address] [place] [phone] Debbi Oconnell RN [address] [place] [address] [email or web address] 03/22/2025 2:00 AM EDT Home Care Visit [facility] [address] [place] [phone] Debbi Oconnell RN [address] [place] [address] [email or web address] 03/30/2025 12:30 AM EDT Appointment [facility] [address] [place] [phone] Debbi Oconnell RN [address] [place] [address] [email or web address] documented as of this encounter Visit Diagnoses Not on filedocumented in this encounter Additional Health Concerns Infection Onset Date Last Indicated Resolved Time CDiff-Risk 10/17/2024 10/17/2024 10/24/2024 1:21 AM EDT Assessment Noted Time PHQ-2 Depression Total Score: 4 09/10/19 4:29 PM EDT documented as of this encounter Care Teams Technical Delivery Manager Relationship Specialty Start Date End Date Unknown, Unknown, [address] [place] [address] PCP - General 01/16/17 05/11/24 Jus Buchanan DO [address] [facility] [address] [place] [address] PCP - General Family Medicine 05/12/24 Lizzy Aguilar MD [address] [place] [address] Partners Attributed Provider 10/11/16 02/07/17 documented as of this encounter Additional Source Comments The information contained in this document represents components of the legal health record. It is not the complete legal health record.[facility]
--- OUTSIDE RECORDS SUMMARY | 2025-02-15 18:17 | XMS_ITS | Encounter Summary ---
Author Organization [facility] Address [email or web address] [facility] [address] [place] [address] Phone Care Team Providers Care Nutrition Coordinator Name Role Phone Dewayne Jus Rigoberto REDDY Primary Care Provider + [phone] Encounter Details Date Type Department Care Team (Late st Contact Info) Description 02/15/2025 Episode Documentatio n Update [facility] [address] [place] [address] Aurora Mendoza [address] [place] [address] Social History Tobacco Use Types Packs/Day Years [...] 3:00 AM EDT Home Care Visit [facility] [address] [place] [phone] Debbi Oconnell, RN [address] [place] [address] 02/17/2025 1:00 PM EDT Home Care Visit [facility] [address] [place] [address] Katiana Crystal, DRESSAGE INSTRUCTOR [address] [place] [address] 02/20/2025 3:15 AM EDT Home Care Visit [facility] [address] [place] [phone] Katiana Crystal, DRESSAGE INSTRUCTOR [address] [place] [address] 02/22/2025 12:45 AM EDT Home Care Visit [facility] [address] [place] [phone] Katiana Crystal, DRESSAGE INSTRUCTOR [address] [place] [address] 02/22/2025 2:00 AM EDT Home Care Visit [facility] [address] [place] [address] Debbi Oconnell RN [address] [place] [address] 02/27/2025 12:45 AM EDT Home Care Visit [facility] [address] [place] [address] Katiana Crystal, DRESSAGE INSTRUCTOR [address] [place] [address] 03/01/2025 Home Care Visit [facility] [address] [place] [address] Katiana Crystal, DRESSAGE INSTRUCTOR [address] [place] [address] 03/01/2025 3:00 AM EDT Home Care Visit [facility] [address] [place] [phone] Debbi Oconnell RN [address] [place] [address] 03/06/2025 Home Care Visit [facility] [address] [place] [phone] Katiana Crystal, DRESSAGE INSTRUCTOR [address] [place] [address] [email or web address] 03/08/2025 Appointment [facility] [address] [place] [address] Lanny Workman, PT [address] [place] [address] 03/08/2025 2:30 AM EDT Home Care Visit [facility] [address] [place] [address] Debbi Oconnell RN [address] [place] [address] 03/15/2025 2:30 AM EDT Home Care Visit [facility] [address] [place] [address] Debbi Oconnell RN [address] [place] [address] 03/22/2025 2:00 AM EDT Home Care Visit [facility] [address] [place] [address] Debbi Oconnell RN [address] [place] [address] 03/30/2025 12:30 AM EDT Appointment [facility] [address] [place] [phone] Debbi Oconnell RN [address] [place] [address] documented as of this encounter Visit Diagnoses Not on filedocumented in this encounter Additional Health Concerns Assessment Noted Time PHQ-2 Depression Total Score: 4 09/10/19 17 4:29 PM EDT documented as of this encounter Care Teams Nutrition Coordinator Relationship Specialty Start Date End Date [facility] [address] [address] PCP - General Family Medicine 05/12/24 documented as of this encounter Additional Source Comments The information contained in this document represents components of the legal health record. It is not the complete legal health record.[facility]
--- OUTSIDE RECORDS SUMMARY | 2025-02-15 18:17 | XMS_ITS | Encounter Summary ---
Author Organization [facility] Address [address] [facility] [address] [place] [address] Encounters * CPT with [facility] on 2025-02-13 { reasonForRequest : back pain , patientReports : , denies :[ Falls with head strike and LOC , Falls from a standing position, no LOC, patient is amnestic to the event , Falls with isolated injury and deformity noted to limb , Falls with inability to move post fall , Cool extremities after fall or injur y ], chiefComplaints : Back Pain , pmh : Rheumatoid Arthritis , allergies : No Known Drug Allergies , otherAllergies : & quot;, painAssessment : , visitOutcome : , additionalComments : 74 y.o male complains of Back Pain x 2 days \n\nSpine surgery - 01/31/25 - Lower back is warm to the touch\n\nReports taking Oxycodone 10 mg every 4 hours with Tylenol and Mortin\n\nPt reports outreaching the surgeon's office - Will no response x 2 hours ago - Advised to call back\n\nDenies fever\n\nWellness check requested \n \n\nI provided information on the mobile health provider response time and advised the patient and/or caregiver to monitor reported signs and symptoms. I discussed the warning signs of when to seek emergency care. } Sent to a call for a pt complaining of back pain after spinal surgery. [facility] arrives on scene, pt is alert and oriented, airway is patent. Pt complains of of chronic left sacral back pain, bowel incontinence, and bilateral leg/foot numbness. Pt states he had Anterior lumbar interbody fusion in Januaryand continues to have back pain. Pt states last episode of bowel incontinence was approx 7 days ago, and he has had normal BM's since then. Pt states he has urine dribbling at baseline with no changeafter surgery. Pt denies mcdowell, dizziness, cp, sob, n/v/d, abd pain (other than intermittent pain at incision site), black/bloody stool, new numbness/weakness in legs, or new urinary incontinence since surgery. Pt has been prescribed Acetaminophen 1gm TID, Ibuprofen 600mg TID, and Oxycodone 5-10mg q 4hrs prn for pain. Pt has been using heating pad. Pt states he is trying not to take Oxycodone unlesshe really needs it. Pt states he has been getting some GLUE MAKER hours, but has not been able to get in contact with senior care specialist recently and requests help. Pt also requests recommendation on otc topical ointment for back pain. During visit, pt's senior care specialist contacts him and he will have another conversation with them. Pt also states he had PT assessment last week and is supposed to have two sessionsthis week, and follow up appt with surgeon training assistant next week. C consulted and pt is advised notto take any other medications containing Tylenol, Advil, Aleve, or Nsaids as pt is taking max dose of Acetaminophen and Ibuprofen. Pt advised he can try biofreeze or tiger balm on back for pain, but make sure to space out heating pad and those topical solutions for at least 1hr between. Pt is advised its a good thing to limit Oxycodone, but if pain gets too bad, it would be better for him to use O xycodone rather than suffer with high levels of pain. Red flags discussed. Pt has no further questions. IV_(FLUIDS_AND/OR_MEDICATION), MEDICATION_IM, ORAL_MEDICATION, EKG Written by Medical [facility] on 2025-02-13
--- OUTSIDE RECORDS SUMMARY | 2025-02-15 18:17 | XMS_ITS | Encounter Summary ---
Author Organization [facility] Address [address] [place] [address] Phone Care Team Providers Care Art Librarian Name Role Phone Jus Buchanan DO Primary Care Provider + [phone] Reason for Referral * MRI/CAT Scan - Closed Specialty Diagnoses / Procedures Referred By Contac t Referred To Contact Radiology Diagnoses Spinal stenosis, lumbar region without neurogenic claudication Procedures MRI Lumbar Spine CHG MRI, LUMBAR SPINE Jus Buchanan DO [address] [address] Phone: tel: fax: Referral ID Status Reason Start Date Expiration Date Visits Re quested Visits Authorized [id number] Closed 08/08/2024 06/07/2025 1 1 Encounter Details Date Type Department Care Team (Latest Contact Info) Description 08/09/2024 Transcribe Orders Virtual Department [address] [place] [address] Jus Buchanan DO [address] [address] Spinal stenosis, lumbar region without neurogenic claudication [...] Care Visit [facility] [address] [place] [address] Debbi Oconnell, JACKY [address] [place] [address] 02/17/2025 1:00 PM EDT Home Care Visit [facility] [address] [place] [address] Katiana Crystal PTA [address] [place] [address] 02/20/2025 3:15 AM EDT Home Care Visit [facility] [address] [place] [address] Katiana Crystal, HAM SMOKER [address] [place] [address] 02/22/2025 12:45 AM EDT Home Care Visit [facility] [address] [place] [address] Katiana Crystal, HAM SMOKER [address] [place] [address] 02/22/2025 2:00 AM EDT Home Care Visit [facility] [address] [place] [address] Debbi Oconnell RN [address] [place] [address] 02/27/2025 12:45 AM EDT Home Care Visit [facility] [address] [place] [phone] Katiana Crystal, HAM SMOKER [address] [place] [address] 03/01/2025 Home Care Visit [facility] [address] [place] [address] Katiana Crystal, HAM SMOKER [address] [place] [address] 03/01/2025 3:00 AM EDT Home Care Visit [facility] [address] [place] [address] Debbi Oconnell RN [address] [place] [address] 03/06/2025 Home Care Visit [facility] [address] [place] [address] Katiana Crystal, HAM SMOKER [address] [place] [address] [email or web address] 03/08/2025 Appointment [facility] [address] [place] [phone] Lanny Workman, PT [address] [place] [address] 03/08/2025 2:30 AM EDT Home Care Visit [facility] [address] [place] [phone] Debbi Oconnell RN [address] [place] [address] 03/15/2025 2:30 AM EDT Home Care Visit [facility] [address] [place] [phone] Debbi Oconnell RN [address] [place] [address] 03/22/2025 2:00 AM EDT Home Care Visit [facility] [address] [place] [phone] Debbi Oconnell RN [address] [place] [address] 03/30/2025 12:30 AM EDT Appointment [facility] [address] [place] [phone] Debbi Oconnell RN [address] [place] [address] documented as of this encounter Results * [...] clinician's provided indication for this examination in [facility]: Outside Radiology Order; spinal stenosis TECHNIQUE: [...] clinician's provided indication for this examination in [facility]:Outside Radiology Order; spinal stenosis TECHNIQUE: MRI [...] progressed at L3-L4. us Jus Buchanan DO IMIzabela MR XSPECIALTY Final Resu lt documented in [...] documented as of this encounter Care Teams Art Librarian Relationship Specialty Start Date End Date Jus Buchanan DO [address] [address] PCP - General Family Medicine 05/12/24 documented as of this encounter Additional Source Comments The information contained in this document represents components of the legal health record. It is not the complete legal health record.[facility]
--- OUTSIDE RECORDS SUMMARY | 2025-02-15 18:17 | XMS_ITS | Encounter Summary ---
Author Organization [facility] Address [address] [place] [address] Phone Care Team Providers Care Phthalic Acid Purifier Name Role Phone Unknown, Unknown Primary Care Provider Jus Silva DO Primary Care Provider [phone] Encounter Details Date Type Department Care Team ([facility] Contact Info) Description 12/22/2022 Procedure Pass [facility], [address] [address] Social History Tobacco Use Types Packs/Day Years [...] Upcoming Encounters Date Type Department Care Team ([facility] Contact Info) Description 02/17/2025 3:00 AM EDT Home Care Visit [facility] [address] [place] [address] Debbi Oconnell RN [address] [place] [address] 02/17/2025 1:00 PM EDT Home Care Visit [facility] [address] [place] [address] Katiana Crystal, QUALITY CONTROLLER [address] [place] [address] 02/20/2025 3:15 AM EDT Home Care Visit [facility] [address] [place] [address] Katiana Crystal, QUALITY CONTROLLER [address] [place] [address] 02/22/2025 12:45 AM EDT Home Care Visit [facility] [address] [place] [phone] Katiana Crystal, QUALITY CONTROLLER [address] [place] [address] 02/22/2025 2:00 AM EDT Home Care Visit [facility] [address] [place] [phone] Debbi Oconnell RN [address] [place] [address] 02/27/2025 12:45 AM EDT Home Care Visit [facility] [address] [place] [address] Katiana Crystal, QUALITY CONTROLLER [address] [place] [address] 03/01/2025 Home Care Visit [facility] [address] [place] [address] Katiana Crystal, QUALITY CONTROLLER [address] [place] [address] 03/01/2025 3:00 AM EDT Home Care Visit [facility] [address] [place] [address] Debbi Oconnell, JACKY [address] [place] [address] 03/06/2025 Home Care Visit [facility] [address] [place] [address] Katiana Crystal, QUALITY CONTROLLER [address] [place] [address] [email or web address] 03/08/2025 Appointment [facility] [address] [place] [phone] Lanny Workman, PT [address] [place] [address] 03/08/2025 2:30 AM EDT Home Care Visit [facility] [address] [place] [phone] Debbi Oconnell RN [address] [place] [address] 03/15/2025 2:30 AM EDT Home Care Visit [facility] [address] [place] [phone] Debbi Oconnell, JACKY [address] [place] [address] 03/22/2025 2:00 AM EDT Home Care Visit [facility] [address] [place] [address] Debbi Oconnell RN [address] [place] [address] 03/30/2025 12:30 AM EDT Appointment [facility] [address] [place], [place] [phone] Debbi Oconnell, JACKY [address] [place] [address] [email or web address] documented as of this encounter Visit Diagnoses Not on filedocumented in this encounter Additional Health Concerns Infection Onset Date Last Indicated Resolved Time CDiff-Risk 10/17/2024 10/17/2024 10/24/2024 1:21 AM EDT Assessment Noted Time PHQ-2 Depression Total Score: 4 09/10/19 17 4:29 PM EDT documented as of this encounter Care Teams Phthalic Acid Purifier Relationship Specialty Start Date End Date Unknown, Unknown, PCP - General 01/16/17 05/11/24 Jus Buchanan DO [address] [address] PCP - General Family Medicine 05/12/24 documented as of this encounter Additional Source Comments The information contained in this document represents components of the legal health record. It is not the complete legal health record.[facility]
--- OUTSIDE RECORDS SUMMARY | 2025-02-15 18:17 | XMS_ITS | Encounter Summary ---
Author Organization [facility] Address [address] [facility] [address] [place] [address] Phone Care Team Providers Care Veterinary Practitioner Name Role Phone Gilberto Buchananin Rigoberto REDDY Primary Care Provider + [phone] Encounter Details Date Type Department Care Team (Late st Contact Info) Description 08/09/2024 Procedure Pass [address] [place] [address] Social History Tobacco Use Types Packs/Day Years [...] 02/17/2025 3:00 AM EDT Home [facility] Visit [facility] [address] [place] [address] Debbi Oconnell, JACKY [address] [place] [address] 02/17/2025 1:00 PM EDT Home Care Visit [facility] [address] [place] [address] Katiana Crystal, SLIP LASTER [address] [place] [address] 02/20/2025 3:15 AM EDT Home Care Visit [facility] [address] [place] [address] Katiana Crystal, SLIP LASTER [address] [place] [address] [email or web address] 02/22/2025 12:45 AM EDT Home Care Visit [facility] [address] [place] [phone] Katiana Crystal, SLIP LASTER [address] [place] [address] 02/22/2025 2:00 AM EDT Home Care Visit [facility] [address] [place] [address] Debbi Oconnell RN [address] [place] [address] 02/27/2025 12:45 AM EDT Home Care Visit [facility] [address] [place] [phone] Katiana Crystal, SLIP LASTER [address] [place] [address] 03/01/2025 Home Care Visit [facility] [address] [place] [address] Katiana Crystal, SLIP LASTER [address] [place] [address] 03/01/2025 3:00 AM EDT Home Care Visit [facility] [address] [place] [phone] Debbi Oconnell RN [address] [place] [address] 03/06/2025 Home Care Visit [facility] [address] [place] [address] Katiana Crystal, SLIP LASTER [address] [place] [address] 03/08/2025 Appointment [facility] [address] [place] [address] Lanny Workman, PT [address] [place] [address] 03/08/2025 2:30 AM EDT Home Care Visit [facility] [address] [place] [phone] Debbi Oconnell RN [address] [place] [address] 03/15/2025 2:30 AM EDT Home Care Visit [facility] [address] [place] [phone] Debbi Oconnell RN [address] [place] [phone] [email or web address] 03/22/2025 2:00 AM EDT Home Care Visit [facility] [address] [place] [phone] Debbi Oconnell RN [address] [place] [address] 03/30/2025 12:30 AM EDT Appointment [facility] [address] [place] [phone] Debbi Oconnell RN [address] [place] [phone] documented as of this encounter Visit Diagnoses Not on filedocumented in this encounter Additional Health Concerns Infection Onset Date Last Indicated Resolved Time CDiff-Risk 10/17/2024 10/17/2024 10/24/2024 1:21 AM EDT Assessment Noted Time PHQ-2 Depression Total Score: 4 09/10/19 17 4:29 PM EDT documented as of this encounter Care Teams Veterinary Practitioner Relationship Specialty Start Date End Date [facility] [address] [address] PCP - General Family Medicine 05/12/24 documented as of this encounter Additional Source Comments The information contained in this document represents components of the legal health record. It is not the complete legal health record.[facility]
--- OUTSIDE RECORDS SUMMARY | 2025-02-15 18:17 | XMS_ITS | Encounter Summary ---
Author Organization [facility] Address [facility] [employer] [facility] [address] [place] [address] Phone Care Team Providers Care Laborer Gold Leaf Name Role Phone Unknown, Unknown Primary Care Provider Jus Silva DO Primary Care Provider [phone] Reason for Referral * MRI/CAT Scan - Closed Specialty Diagnoses / Procedures Referred By Ruddy lawson Referred To Contact Radiology Diagnoses Low back pain, unspecified back pain laterality, unspecified chronicity, unspecified whether sciatica present Spondylolisthesis, unspecified spinal region Procedures MRI Lumbar Spine CHG MRI, LUMBAR SPINE Jus Buchanan DO [address] [address] Phone: tel: fax: Referral ID Status Reason Start Date Expiration Date Visits Re quested Visits Authorized [id number] Closed 12/18/2022 04/19/2023 1 1 Encounter Details Date Type Department Care Team (Latest Contact Info) Description 12/22/2022 Transcribe Orders Virtual Department [address] [place] [address] Jus Buchanan DO [address] [address] Low back pain, unspecified back pain laterality, [...] 3:00 AM EDT Home Care Visit [facility] [address] [place] [address] Debbi Oconnell, JACKY [address] [place] [address] 02/17/2025 1:00 PM EDT Home Care Visit [facility] [address] [place] [address] Katiana Crystal, MASH PROCESSING OPERATOR [address] [place] [address] 02/20/2025 3:15 AM EDT Home Care Visit [facility] [address] [place] [address] Katiana Crystal MASH PROCESSING OPERATOR [address] [place] [address] 02/22/2025 12:45 AM EDT Home Care Visit [facility] [address] [place] [address] Katiana Crystal, MASH PROCESSING OPERATOR [address] [place] [address] [email or web address] 02/22/2025 2:00 AM EDT Home Care Visit [facility] [address] [place] [address] Debbi Oconnell, JACKY [address] [place] [address] 02/27/2025 12:45 AM EDT Home Care Visit [facility] [address] [place] [address] Katiana Crystal, MASH PROCESSING OPERATOR [address] [place] [address] 03/01/2025 Home Care Visit [facility] [address] [place] [address] Katiana Crystal, MASH PROCESSING OPERATOR [address] [place] [address] 03/01/2025 3:00 AM EDT Home Care Visit [facility] [address] [place] [address] Debbi Oconnell, RN [address] [place] [address] 03/06/2025 Home Care Visit [facility] [address] [place] [phone] Katiana Crystal, MASH PROCESSING OPERATOR [address] [place] [address] 03/08/2025 Appointment [facility] [address] [place] [address] Lanny Workman, PT [address] [place] [address] 03/08/2025 2:30 AM EDT Home Care Visit [facility] [address] [place] [address] Debbi Oconnell RN [address] [place] [address] 03/15/2025 2:30 AM EDT Home Care Visit [facility] [address] [place] [phone] Debbi Oconnell RN [address] [place] [address] 03/22/2025 2:00 AM EDT Home Care Visit [facility] [address] [place] [phone] Debbi Oconnell RN [address] [place] [address] 03/30/2025 12:30 AM EDT Appointment [facility] [address] [place] [address] Debbi Oconnell RN [address] [place] [address] documented as of this encounter Results * [...] hyperintense structure, likely cyst. Prostatomegaly on the vascular neurologist images. FINDINGS BY LEVEL: T10-T11: Diffuse disc [...] T2 hyperintense structure, likely cyst. Prostatomegaly onthe vascular neurologist images. FINDINGS BY LEVEL: T10-T11: Diffuse disc [...] documented as of this encounter Care Teams Laborer Gold Leaf Relationship Specialty Start Date End Date Unknown, Unknown, MD PCP - General 01/16/17 05/11/24 [facility] [address] [address] PCP - General Family Medicine 05/12/24 documented as of this encounter Additional Source Comments The information contained in this document represents components of the legal health record. It is not the complete legal health record.[facility]
--- OUTSIDE RECORDS SUMMARY | 2025-02-15 18:17 | XMS_ITS | Continuity of Care Document ---
Author Name [facility] Address [address] [place] [address] Organization Unknown Address [address] [place] [address] Medications No known medications Problems No known problems
--- OUTSIDE RECORDS SUMMARY | 2025-02-15 18:17 | XMS_ITS | Clinical Summary ---
Author Organization [facility], Address [address] [place] [address] [place] [address] Phone Care Team Providers Care Cloth Booker Name Role Phone Jus Buchanan DO Primary Care Provider [phone] Social History Tobacco Use Types Packs/Day Years Used Date Smoking Tobacco: Never Assessed Sex and Gender Information Value Date Recorded Sex Assigned at Not on file Legal Sex Male 12:11 PM EDT Gender Identity Not on file Sexual Orientation Not on file Plan of Treatment Health Maintenance Due Date Last Done Comments Colorectal Cancer Screening: Annual FOBT 1998 Colorectal Cancer Screening: Colonoscopy 1998 Colorectal Cancer Screening: Sigmoidoscopy 1998 Pneumococcal Vaccine: 50+ Ye ars (1 of 1 - PCV) 1999 Influenza Vaccine (#1) 2025 Hepatitis B Vaccine Aged Out No longe r eligible based on patient's age to complete this topic Insurance [facility] One Care Dual SNP ([id number]) [place] [phone] Care Teams Cloth Booker Relationship Specialty Start Date End Date Jus Buchanan DO [address] [place] [address] PCP - General 10/26/24
== END 2025-02-15 16:15 | disposition home or self-care (01) ==
LOC: HO.HNS 15:17
PROVIDERS: Visit Provider Physician Assistant
DX: M43.16 Spondylolisthesis, lumbar region (principal)
CPT/HCPCS: 99024

== ENCOUNTER 2025-02-15 15:17 | Outpatient (REF) | payer OTHER, SELFPAY | END 2025-02-15 15:18 | disposition home or self-care (01) | LOC: HO.HOSX 15:17 | PROVIDERS: Visit Provider Physician Assistant | DX: Z13.89 Encounter for screening for other disorder (principal) ==

== ENCOUNTER 2025-03-29 13:09 | Outpatient (AMB) | payer OTHER, SELFPAY ==
--- NOTE | 2025-03-29 13:29 | HO.SPINEOV ---
Intake Visit Reasons: 2nd post op with Xrays Intake Note: Mr. Jiang is here today for his 2nd post op with x-rays. Clerical Adjudicator Required: No Allergies isopropyl alcohol Allergy (Verified 01/31/25 06:31) Rash Anesthesia Adverse Reaction (Unknown, Uncoded 01/31/25 06:31) Swelling Assessment & Plan Assessment & Plan (1) Status post lumbar and lumbosacral fusion by anterior technique: Code(s): Z98.1 - Arthrodesis status Category: Medical Plan Dear colleague, On 03/29/2025, I saw for 2nd postoperative visit Henrik Jiang, who is status post anterior lumbar interbody fusion L3-4 and L4-5 on 01/31/2025 for back pain and progressive symptoms of cauda equina syndrome. His postoperative recovery is going steady but slow. He denies significant back pain. However, his preoperative symptoms are still present and numbness in his left foot may even be somewhat worse. I reviewed the most current images with the patient that shows good position of the interbody devices and posterior instrumentation with opening of the bilateral foramina. I explained to him that sometimes when nerve root cover the symptoms may initially get worse before they get better. His recovery is also influenced by a major depression for which he seeing a psychiatrist and was recently started on duloxetine. He will restart his gabapentin for the tingling in his legs. Overall, I am optimistic that he will further recover. He admits that he has not been doing much of an activity due to the depression but is adamant that he is going to increase his activity, which includes physical therapy. He will follow-up with me in 6 weeks. Alex Valenzuela MD, PhD Spine Fellowship Trained Neurosurgeon Director, [facility] Orders: Orders XR lumbar spine 4V min Today M43.16 - Spondylolisthesis, lumbar region Coding Level of Care Code Global (78819) Diagnoses Status post lumbar and lumbosacral fusion by anterior technique Z98.1
--- OUTSIDE RECORDS SUMMARY | 2025-03-29 18:27 | XMS_ITS | Encounter Summary ---
Author Organization [facility] Address Count includes the [facility] [employer] [facility] [address] [place] [address] Phone Care Team Providers Care Immunology Teacher Name Role Phone Unknown, Unknown Primary Care Provider Jus Silva DO Primary Care Provider [phone] Reason for Referral * MRI/CAT Scan - Closed Specialty Diagnoses / Procedures Referred By Ruddy lawson Referred To Contact Radiology Diagnoses Low back pain, unspecified back pain laterality, unspecified chronicity, unspecified whether sciatica present Spondylolisthesis, unspecified spinal region Procedures MRI Lumbar Spine CHG MRI, LUMBAR SPINE Jus Buchanan DO [address] [address] Phone: tel: fax: Referral ID Status Reason Start Date Expiration Date Visits Re quested Visits Authorized [id number] Closed 12/18/2022 04/19/2023 1 1 Encounter Details Date Type Department Care Team (Latest Contact Info) Description 12/22/2022 Transcribe Orders Virtual Department [address] [place] [address] [place] [address] [address] Low back pain, unspecified back pain laterality, [...] hyperintense structure, likely cyst. Prostatomegaly on the sheet metal layout mechanic images. FINDINGS BY LEVEL: T10-T11: Diffuse disc [...] T2 hyperintense structure, likely cyst. Prostatomegaly onthe sheet metal layout mechanic images. FINDINGS BY LEVEL: T10-T11: Diffuse disc [...] documented as of this encounter Care Teams Immunology Teacher Relationship Specialty Start Date End Date Unknown, Unknown, MD PCP - General 01/16/17 05/11/24 Jus Buchanan DO [address] [address] PCP - General Family Medicine 05/12/24 documented as of this encounter Additional Source Comments The information contained in this document represents components of the legal health record. It is not the complete legal health record.[facility]
--- OUTSIDE RECORDS SUMMARY | 2025-03-29 18:27 | XMS_ITS | Encounter Summary ---
Author Organization [facility] Address [facility] [employer] [facility] [address] [place] [address] Phone Care Team Providers Care Protective Services Social Worker Name Role Phone Gilberto Buchananin Rigoberto REDDY Primary Care Provider + [phone] Encounter Details Date Type Department Care Team (Late st Contact Info) Description 08/09/2024 Procedure Pass [address] [place] [address] Social History Tobacco Use Types Packs/Day Years [...] documented as of this encounter Care Teams Protective Services Social Worker Relationship Specialty Start Date End Date Jus Buchanan DO [address] [address] PCP - General Family Medicine 05/12/24 documented as of this encounter Additional Source Comments The information contained in this document represents components of the legal health record. It is not the complete legal health record.[facility]
--- OUTSIDE RECORDS SUMMARY | 2025-03-29 18:27 | XMS_ITS | Encounter Summary ---
Author Organization [facility] Address [facility] [employer] [facility] [address] [place] [address] Phone Care Team Providers Care Engine Cleaner Name Role Phone Unknown, Unknown Primary Care Provider Jus Silva DO Primary Care Provider [phone] Encounter Details Date Type Department Care Team (Late st Contact Info) Description 12/22/2022 Procedure Pass [facility] [address] [place] [address] Social History Tobacco Use Types Packs/Day Years [...] documented as of this encounter Care Teams Engine Cleaner Relationship Specialty Start Date End Date Unknown, Unknown, MD PCP - General 01/16/17 05/11/24 Jus Buchanan DO [address] [address] PCP - General Family Medicine 05/12/24 documented as of this encounter Additional Source Comments The information contained in this document represents components of the legal health record. It is not the complete legal health record.[facility]
--- OUTSIDE RECORDS SUMMARY | 2025-03-29 18:27 | XMS_ITS | Encounter Summary ---
Author Organization [facility] Address [address] [place] [address] [place] [address] Phone Care Team Providers Care Bundle Collector Name Role Phone Jus Buchanan Primary Care Provider [phone] Encounter Details Date Type Department Care Team (Latest Contact Info) Description 10/17/2024 Transcribe Orders [facility] [address] [address] Macy Zavala PA [address] [place] [address] Diarrhea, unspecified type (Primary Dx) Social History [...] 07/01/2024 Are you denied basic needs s [facility] as food, clothing, or medical care? No [...] documented as of this encounter Care Teams Bundle Collector Relationship Specialty Start Date End Date Jus Buchanan DO [address] [address] PCP - General Family Medicine 05/12/24 documented as of this encounter Additional Source Comments The information contained in this document represents components of the legal health record. It is not the complete legal health record.[facility]
--- OUTSIDE RECORDS SUMMARY | 2025-03-29 18:27 | XMS_ITS | Encounter Summary ---
Author Organization [facility] Address [address] [place] [address] Phone Care Team Providers Care Food Aide Name Role Phone Jus Buchanan DO Primary Care Provider + [phone] Reason for Referral * MRI/CAT Scan - Closed Specialty Diagnoses / Procedures Referred By Contac t Referred To Contact Radiology Diagnoses Spinal stenosis, lumbar region without neurogenic claudication Procedures MRI Lumbar Spine CHG MRI, LUMBAR SPINE Jus Buchanan DO [address] [address] Phone: tel: fax: Referral ID Status Reason Start Date Expiration Date Visits Re quested Visits Authorized [id number] Closed 08/08/2024 06/07/2025 1 1 Encounter Details Date Type Department Care Team (Latest Contact Info) Description 08/09/2024 Transcribe Orders Virtual Department [address] [place] [address] Jus Buchanan DO [address] [address] Spinal stenosis, lumbar region without neurogenic claudication [...] clinician's provided indication for this examination in [facility]: Outside Radiology Order; spinal stenosis [...] clinician's provided indication for this examination in [facility]:Outside Radiology Order; spinal stenosis TECHNIQUE: [...] documented as of this encounter Care Teams Food Aide Relationship Specialty Start Date End Date Jus Buchanan DO [address] [address] PCP - General Family Medicine 12/5/24 documented as of this encounter Additional Source Comments The information contained in this document represents components of the legal health record. It is not the complete legal health record.[facility]
--- OUTSIDE RECORDS SUMMARY | 2025-03-29 18:27 | XMS_ITS | Clinical Summary ---
Author Organization [facility] Address [address] [facility] [address] [place] [phone] Phone Care Team Providers Care Blanket Cutting Machine Operator Name Role Phone Jus Buchanan Primary Care Provider [phone] Allergies No known active allergies Medications ibuprofen [...] 3 mg by mouth daily. 5 Active docusate sodium (COLACE) 100 MG capsule Take 100 mg by mouth 2 (two) times a day. 5 Active oxyCODONE 5 MG immediate release tablet Take 1-2 tablets (5-10 mg total) by mouth every 6 (six) hours as needed for pain (specific location in comments). Partial fill ok 10 tablet 5 Active gabapentin (NEURONTIN) 300 MG capsule Take 600 mg by mouth nightly at bedtime. 5 Active clonazePAM (KLONOPIN) 0.5 MG tablet Take 0.5 mg by mouth daily as needed for anxiety. half to 1 tablet 5 Active Active Problems Problem Noted Date Diagnosed Date Primary osteoarthritis involving multiple joints 09/15/2016 Encounters Date Type Department Care Team Description 03/07/2025 11:45 AM EDT Home Care Visit [facility] [address] [place] [address] Lanny Workman, PT PT OASIS DISCHARGE VISIT 03/03/2025 3:00 PM EDT Home Care Visit [facility] [address] [place] [address] Debbi Oconnell, JACKY SN DISCIPLINE DISCHARGE NON VISIT/TELEPHONE 03/02/2025 2:45 PM EDT Home Care Visit [facility] [address] [place] [address] Katiana Crystal, VEGETABLE I FARMWORKER VEGETABLE I FARMWORKER HOME VISIT 02/27/2025 11:00 AM EDT Home Care Visit [facility] [address] [place] [address] Katiana Crystal, VEGETABLE I FARMWORKER VEGETABLE I FARMWORKER HOME VISIT 02/24/2025 1:00 PM EDT Home Care Visit [facility] [address] [place] [address] Katiana Crystal VEGETABLE I FARMWORKER VEGETABLE I FARMWORKER HOME VISIT 02/22/2025 Home Care Visit [facility] [address] [place] [address] Angelica Ramirez LPN MISSED VISIT 02/21/2025 1:00 PM EDT Home Care Visit [facility] [address], [place] [phone] Katiana Crystal, VEGETABLE I FARMWORKER VEGETABLE I FARMWORKER HOME VISIT 02/19/2025 12:22 PM EDT - 02/19/2025 1:15 PM EDT Emergency [facility] [address] [place] [address] Rom Mccarty MD Discharge Disposition: Home or Self Care 02/17/2025 1:00 PM EDT Home Care Visit [facility] [address], [place] [phone] Katiana Crystal, VEGETABLE I FARMWORKER VEGETABLE I FARMWORKER HOME VISIT 02/17/2025 Episode Documentatio n Update [facility] [address] [place] [address] Aurora Mendoza 02/15/2025 Episode Documentatio n Update [facility] [address] [place] [address] Aurora Mendoza 02/09/2025 12:30 PM EDT Home Care Visit [facility] [address], [place] [phone] Kierra Davis, VEGETABLE I FARMWORKER VEGETABLE I FARMWORKER HOME VISIT 02/08/2025 3:00 PM EDT Home Care Visit [facility] [address] [place] [address] Angelica Ramirez LPN SHIPYARD LABORER HOME VISIT 02/08/2025 Home Care Visit [facility] [address], [place] [phone] Gia Zhang, PT TELEPHONE ENCOUNTER 02/07/2025 Episode Documentatio n Update [facility] [address], [place] [phone] 02/06/2025 10:00 AM EDT Home Care Visit [facility] [address], [place] [phone] Gia Zhang, PT PT EVALUATION 02/04/2025 Plan of Care Documentation [facility] [address], [place] [phone] 02/03/2025 2:00 PM EDT [facility] Visit [facility] [address] [place] [phone] Debbi Oconnell RN SN OASIS START OF CARE (SOC) 02/01/2025 Orders Only [facility] [address] [place] [phone] Homehealth, Interface ProviderMD from Last 3 Months Social History Tobacco Use Types Packs/Day Years Used Date Smoking Tobacco: Never Alcohol Use Standard Drinks/Week Comments No 0 (1 standard drink = 0.6 oz pur e alcohol) sober 5 years Home Health Assessment: Transportation Answer Date Recorded Lack of Transportation (Medical) No 03/07/2025 Lack of Transportation (Non-Medical) No 03/07/2025 Patient Unable or Declines to Respond No 03/07/2025 Education Answer Date Recorded Are you interested in more education? Not on rich e 10/05/2022 Are you concerned about learning? Not on file 10/05/2022 No 10/05/2022 No 10/05/2022 Food Answer Date Recorded Within the past 6 months we worried whether our food would run out before we got money to buy more. Never True 02/19/2025 Within the past 6 months the food we bought just didn't last and we didn't have enough money to get more. Never True Residential Stability Answer Date Recor ded What is your housing situation today? I have brenda sing 02/19/2025 How many times have you move d in the past 12 months? Zero (I did not move) 02/19/2025 Paying for Meds Answer Date Recorded Do you have trouble paying for medicines? No 02/19/2025 Paying Utility Bills Answer Date Record ed Do you have trouble paying your heating or elect ricity bill? No 02/19/2025 Transportation Answer Date Recorded Has the lack of transportati on kept you from medical appointments or from getting medications? No 02/19/2025 Digital Access Answer Date Recorded No 02/19/2025 Yes 02/19/2025 Do you have reliable internet access at home? Ye s 02/19/2025 Do you have a device (e.g., phone, tablet, computer) with a working camera? Yes 02/19/2025 Intimate Partner Violence Answer Date R ecorded Are you denied basic needs s uch as food, clothing, or medical care? No 02/19/2025 In the past 12 months have y ou been in a relationship with a person who hurts, threatens, or tries to control you? No 02/19/2025 Are you denied basic needs s uch as food, clothing, or medical care? No 02/19/2025 In the past 12 months have y ou been in a relationship with a person who hurts, threatens, or tries to control you? No 02/19/2025 Sex and Gender Information Value Date Recorded Sex Assigned at Male 07/01/2024 6:40 PM EST Legal Sex Male 5:20 PM EST Gender Identity Male 07/01/2024 6:40 PM EST Sexual Orientation Not on file Last Filed Vital Signs Vital Sign Reading Time Taken Comments Blood Pressure 138/86 03/07/2025 12:42 PM EDT Pulse 88 03/07/2025 12:42 PM EDT Temperature 36.3 C (97.4 F) 03/07/2025 12:42 PM EDT Respiratory Rate 16 03/07/2025 12:42 PM EDT Oxygen Saturation 97% 03/07/2025 12:42 PM EDT Inhaled Oxygen Concentration - - Weight 70.3 kg (155 lb) 02/19/2025 11:45 AM EDT Height 162.6 cm (5' 4 ) 02/19/2025 11:45 AM EDT Body Mass Index 26.61 02/19/2025 11:45 AM EDT Plan of Treatment Health Maintenance Due [...] 2024 INFLUENZA VACCINE (#1) 2025 COVID-19 VACCINE (2024-2 6 season) 2025 SMOKING STATUS SCREENING (On ce After 26 Yrs) Completed 02/19/2025 HEPATITIS A VACCINES Aged Out No long [...] Devices Not on file Insurance [employer] [id number] MEDICARE REPLACEMENT MEDICARE REPLACEMENT [facility] MEDICARE REPLACEMENT [employer] [id number] Care Teams Blanket Cutting Machine Operator Relationship Specialty Start Date End Date [facility] [address] [address] PCP - General Family Medicine 05/12/24 Additional Source Comments The information contained in this document represents components of the legal health record. It is not the complete legal health record.[facility]
--- OUTSIDE RECORDS SUMMARY | 2025-03-29 18:27 | XMS_ITS | Encounter Summary ---
Author Organization [facility] Address [address] [place] [address] [place] [phone] Phone Care Team Providers Care Veterinary Surgery Technologist Name Role Phone Lizzy Aguilar MD Unavailable [phone] Unknown, Unknown Primary Care Provider Jus Silva DO Primary Care Provider [phone] Encounter Details Date Type Department Care Team (Late st Contact Info) Description 01/16/2017 Procedure Pass [facility] [address] [place] [address] Social History Tobacco Use Types Packs/Day Years [...] as of this encounter Care Teams Veterinary Surgery Technologist Relationship Specialty Start Date End Date Unknown, Unknown, [address] [place] [address] [place] [address] PCP - General 01/16/17 05/11/24 Jus Buchanan DO [address] [facility] [address] [place] [address] PCP - General Family Medicine 05/12/24 Lizzy Aguilar MD [address] [place] [address] Partners Attributed Provider 10/11/16 02/07/17 documented as of this encounter Additional Source Comments The information contained in this document represents components of the legal health record. It is not the complete legal health record.[facility]
== END 2025-03-29 14:28 | disposition home or self-care (01) ==
LOC: HO.HNS 13:10
PROVIDERS: Visit Provider Neurological Surgery
DX: Z98.1 Arthrodesis status (principal)
CPT/HCPCS: 99024

== ENCOUNTER 2025-03-29 13:09 | Outpatient (REF) | payer OTHER, SELFPAY ==
--- NOTE | ~2025-03-29 | XR_ITS ---
CLINICAL HISTORY: M43.16 - Spondylolisthesis, lumbar region --- Additional Notes or Special Instructions: AP LAT FLEX EX 4 views lumbar spine Comparison: DX/SR - XR LUMBAR SPINE 4 OR MORE VIEWS - 09/23/24 14:30 EDT Findings: There has been interval L3-L5 posterior fusion with interbody disc spacers. Mild to moderate multilevel marginal osteophyte formation and disc space narrowing is present. Vertebral body heights are well-maintained. No acute fracture is identified. There is grade 2 anterolisthesis of L4 and grade 1 anterolisthesis of L3, decreased since prior exam; there is no change on flexion/extension. Aortic calcifications are present. IMPRESSION: 1. 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 2. Grade 2 anterolisthesis of L4 and grade 1 anterolisthesis of L3, decreased since prior exam. This document has been electronically signed by: Emi Samuel on 03/31/2025 09:38:37
--- OUTSIDE RECORDS SUMMARY | 2025-03-29 18:32 | XMS_ITS | Data Portability ---
Author Organization [facility] Address [address] [place] [phone] Care Team Providers Care Floral Clerk Name Role Phone HIM JUAN OTHER Assessment Encounter Date Assessment Date Assessment LastModified by Organization Details LastModified Time 02/13/2025 02/13/2025 I provided real -time medical direction via phone for this encounter, and was available for additional phone based assistance as needed. I have reviewed and agree with the Assessment and Plan as documented by the Inventory Control Specialist. We discussed the diagnostic uncertainty of home visits and the risk associated with this. In this case the patient and I felt this to be an acceptable and reasonable amount of risk given the benefit of avoiding an ED visit. The patient given the opportunity to ask questions. Advised if develops CP/severe SOB/turning blue/uncontrolle d n/v/d or black/bloody emesis or stool/ AMS/ syncope/acute changes in bowel or bladder control, intolerable back pain or intolerable abdominal pain /new focal weakness or severe numbness to his extremities/ temp 100.3 or higher(since he is maintained on antipyretics) to call 911- verbalized understanding of instruction [email or web address] Not available 02/14/2025 00:20:57 Plan of Treatment Reminders Order Date Submit Date Provider Last Modified By Organization Details Last Modified Time Details Appointments None record ed. Lab None record ed. Referral None record ed. Procedures None record ed. Surgeries None record ed. Imaging None record ed. Medication Orders None record ed. Patient TargetsNo targets recorded. Patient InstructionsNo instructions recorded. Reason for Referral None Reported. Medical Equipment None Reported. Allergies No known drug allergies Medications Name Sig Start Date Stop Date Status Note LastModified by Organization Details LastModified Time clonazepam 0.5 mg tablet TAKE 1/2 - 1 TABLET BY MOUTH ONCE A DAY NEEDED active Not Available Not Available No t Available clonazepam 1 mg tablet TAKE ONE TABLET BY MOUTH EVERY DAY NEEDED FOR ANXIETY active Not Available Not Available No t Available acetaminophen 500 mg tablet TAKE 2 TABLETS BY MOUTH 3 TIMES A DAY NEEDED FOR MILD PAIN active Not Available Not Available No t Available oxycodone-acet aminophen 5 mg-325 mg tablet TAKE 1 TABLET BY MOUTH EVERY 4 HOURS NEEDED FOR PAIN active Not Available Not Available No t Available ibuprofen 400 mg tablet TAKE 1 TABLET BY MOUTH EVERY 6 HOURS NEEDED FOR PAIN active Not Available Not Available No t Available ibuprofen 600 mg tablet TAKE 1 TABLET BY MOUTH 3 TIMES A DAY NEEDED FOR MILD PAIN active Not Available Not Available No t Available oxycodone 5 mg tablet TAKE 1 TO 2 TABLETS BY MOUTH EVERY 4 HOURS NEEDED FOR PAIN active Not Available Not Available No t Available escitalopram 5 mg tablet TAKE ONE TABLET BY MOUTH EVERY DAY active Not Available Not Available No t Available mirtazapine 7.5 mg tablet TAKE 1 TABLET BY MOUTH EVERYDAY AT BEDTIME active Not Available Not Available No t Available duloxetine 30 mg capsule,delaye d release TAKE 1 CAPSULE BY MOUTH EVERY MORNING WITH FOOD active Not Available Not Available No t Available Vitals Date Recorded Oxygen saturation Oxygen saturation in Arterial blood by Pulse oximetry Body temperature Body weight Respiratory rate Heart rate Body height Systolic And Diastolic Provider Name and Address Organization Details Last Updated DateTime 97 % 97 % 98.2 [degF] 665[address].7 2 g 18 /min 67 /min 162.56 cm 165/82 mm[Hg] Not Available [facility] - production 13:54:48 Social History None recorded. Functional Status None recorded. Mental Status None recorded. Family History Nothing Reported. Medical History No medical history recorded. Past Encounters Encounter ID Performer Location Encounter Start Date Encounter Closed Date Diagnosis/Indication Diagnosis SNOMED-CT Code Diagnosis ICD10 Code Diagnosis IMO Codes Diagnosis Note [id number] Lanny García MD [facility] [address] [place] [address] 02/13/2025 13:54:41 02/14/2025 12:37:05 Postoperative pain 891893512 G89.18 [id number] advised to continue current regimen-is on max dose Tylenol/ib uprofen. He is not currently taking aspirin. Advised no more OTC medication s with acetaminop hen or any NSAIDs. I explained that I understand his reluctance to take the oxycodone due to side effects/lo ng-term effects, advised to take it if he really needs it/advised to use moist heat on his back every few hours and he may try Clive balm or Biofreeze to his back only -not to his abdomen- every few hours- do not use within 1 hr of applying heat- he verbalized understand ing Health Concerns Section Related Observation LastModified by Organization Detai ls LastModified Time None Recorded Concern Status LastModified by Organization Details LastModified Time None Recorded Advance Directives Directive None Recorded Payers Insurance Date Sequence Insurance Name Policy Number Policy Alvarez Covered Member ID Alvarez Member ID Guarantor Name 02/12/2025 1 [facility] - DOS ON OR AFTER 2022 - DUAL ELIGIBLE - HALFWAY OPTIONS AND ONE CARE (MEDICARE REPLACEMENT/AD VANTAGE - HMO) Henrik Jiang [id number] Henrik Jiang Notes Date Note Type Note Provider Name and Address Organization Details Recorded Time 02/13/2025 text/html ROS as noted in the HPI CRC Nurse Triage Notes (Armand Tomlinson): Reason For Request: back pain Denies: Falls with head strike and LOC Falls from a standing position, no LOC, patient is amnestic to the event Falls with isolated injury and deformity noted to limb Falls with inability to move post fall Cool extremities after fall or injury Chief Complaints: Back Pain PMH: Rheumatoid Arthritis PMH Reviewed at 02/12/2025 - 10:08 Allergies Reviewed at 02/12/2025 - 10:08 Comments: 74 y.o male complains of Back Pain x 2 days Spine surgery - 01/31/25 - Lower back is warm to the touch Reports taking Oxycodone 10 mg every 4 hours with Tylenol and Mortin Pt reports outreaching the surgeon's office - Will no response x 2 hours ago - Advised to call back Denies fever Wellness check requested I provided information on the mobile health provider response time and advised the patient and/or caregiver to monitor reported signs and symptoms. I discussed the warning signs of when to seek emergency care. .................... .................... .................... .................... .................... .................... .................... . Inventory Control Specialist Note From Ryanne Lawson: Sent to a call for a pt complaining of back pain after spinal surgery. SC6 arrives on scene, pt is alert and oriented, airway is patent. Pt complains of of chronic left sacral back pain, bowel incontinence, and bilateral leg/foot numbness. Pt states he had Anterior lumbar interbody fusion in January and continues to have back pain. Pt states last episode of bowel incontinence was approx 7 days ago, and he has had normal BM's since then. Pt states he has urine dribbling at baseline with no change after surgery. Pt denies mcdowell, dizziness, cp, sob, n/v/d, abd pain (other than intermittent pain at incision site), black/bloody stool, new numbness/weakness in legs, or new urinary incontinence since surgery. Pt has been prescribed Acetaminophen 1gm TID, Ibuprofen 600mg TID, and Oxycodone 5-10mg q 4hrs prn for pain. Pt has been using heating pad. Pt states he is trying not to take Oxycodone unless he really needs it. 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 Pt also requests recommendation on otc topical ointment for back pain. During visit, pt's pharmacy care coordinator contacts him and he will have another conversation with them. Pt also states he had PT assessment last week and is supposed to have two sessions this week, and follow up appt with surgeon criminal legal assistant next week. C consulted and pt is advised not to take any other medications containing Tylenol, Advil, [...] would be better for him to use Oxycodone rather than suffer with high levels of pain. Red flags discussed. Pt has no further questions. .................... .................... .................... .................... .................... .................... .................... . [facility] Consulted: Lanny García .................... .................... .................... .................... .................... .................... .................... . Disposition: Fulfilled Lanny García MD [address] [facility],[address] [facility], [place], [address], HENRY PERALES 02/14/2025 00:22:22
== END 2025-03-29 13:10 | disposition home or self-care (01) ==
LOC: HO.HOSX 13:09
PROVIDERS: Visit Provider Neurological Surgery
DX: Z47.89 Encounter for other orthopedic aftercare (principal); M43.16 Spondylolisthesis, lumbar region; Z98.1 Arthrodesis status
CPT/HCPCS: 72110; 99212

== ENCOUNTER → 2025-03-29 13:28 | Outpatient (BNV) | payer OTHER, SELFPAY | PROVIDERS: Visit Provider Radiology Vascular & Interventional Radiology | DX: M43.16 Spondylolisthesis, lumbar region (principal); M43.26 Fusion of spine, lumbar region; M51.369 Other intervertebral disc degeneration, lumbar region without mention of lumbar back pain or lower extremity pain | CPT/HCPCS: 72110 ==